=== PATIENT | female | born 2000 | race African-American/Black ===

== ENCOUNTER 2022-06-10 20:03 | Emergency (ER) | payer OTHER, SELFPAY ==
--- NOTE | ~2022-06-10 | XR_ITS ---
EXAM: XR ankle LT min 3V DATE: 06/10/2022 20:18 HISTORY: injury;fell during basketball yest; lat Lt ankle swelling . COMPARISON: None available. FINDINGS: Normal mineralization. No fracture or dislocation. No lytic or blastic lesion. Joint space s are maintained. No erosion or periosteal change. Soft tissues within normal limits. IMPRESSION: No acute osseous finding in the left ankle. Reviewed, dictated and finalized at location K.
[2022-06-10 20:06] VITALS: BP 129/54; PULSE 65; RESP 16; TEMP 36.4; O2SAT 97
--- NOTE | 2022-06-10 20:17 | ED.LOWEXIN ---
HPI - Extremity Injury (Lower) General Chief Complaint: Extremity Injury, Lower Stated Complaint: L ankle swelling, hx sprain Time Seen by Provider: 06/10/22 20:09 Source: patient Mode of arrival: ambulatory (On crutches) Limitations: no limitations History of Present Illness HPI Narrative: This is a 21-year-old female that presents to the emergency department for left ankle pain after an injury yesterday. Reports she rolled her ankle in practice yesterday. Reports pain and swelling in the lateral ankle. Denies decreased range of motion or numbness. Related Data Allergies Allergy/AdvReac Type Severity Reaction Status Date / Time No Known Allergies Allergy Unverified 06/22/17 19:45 Review of Systems Review of Systems: CONSTITUTIONAL: Denies fever MUSCULOSKELETAL: Reports joint pain, and myalgia. NEUROLOGIC: Denies numbness All systems reviewed & are unremarkable except as noted in HPI and below PMFSH Past Medical History Medical History (Updated 06/10/22 @ 20:46 by Janet Berumen PA-C) No active medical problems Social History Social History (Updated 06/10/22 @ 20:18 by Janet Berumen PA-C) Smoking status: Never smoker Exam Narrative: GENERAL: Well-appearing, well-nourished, and in no acute distress. HEAD: Normocephalic, atraumatic. EYES: EOMI. EXTREMITIES: Normal range of motion. Mild edema about the left lateral malleoli. Normal DP pulse. Normal sensation SKIN: Warm, dry, no rash. NEURO: No focal deficits. Alert and oriented x3. PSYCH: Normal mood and affect Course Vital Signs Vital signs: Vital Signs Temperature 97.6 F 06/10/22 20:06 Pulse Rate 65 06/10/22 20:06 Respiratory Rate 16 06/10/22 20:06 Blood Pressure 129/54 L 06/10/22 20:06 Pulse Oximetry 97 06/10/22 20:06 Temperature 97.6 F 06/10/22 20:06 Pulse Rate 65 06/10/22 20:06 Respiratory Rate 16 06/10/22 20:06 Blood Pressure 129/54 L 06/10/22 20:06 Pulse Oximetry 97 06/10/22 20:06 MDM - Extremity Injury (Lower) MDM Narrative Medical decision making narrative: Patient presents emergency department for left ankle pain after an injury yesterday. She is neurovascularly intact. Left ankle x-ray without acute osseous abnormalities. Patient instructed on continued care of ankle sprain. She is to follow-up with primary care provider. She was given warnings to return to the ER Imaging Data Radiologist's impression: ITS Impressions Ankle X-Ray 06/10/22 20:21 IMPRESSION: No acute osseous finding in the left ankle. Critical Care Time Critical Care Time Critical Care Time: No Discharge Plan Discharge Clinical Impression: Ankle sprain and strain Patient Disposition: Home, Self-Care Condition: Stable Instructions: Ankle Sprain (ED) Additional Instructions: Return to the emergency department if you experience fever, redness and swelling of your leg, numbness, or any other symptoms that are concerning to you Wear ROMAN wrap and use crutches. No weight on the affected leg until able to bear weight without pain. Ice and elevate extremity. Pain medication as needed and directed. Follow up with your doctor for further care. Follow-up/Referrals: PHYSICIAN,MASK INSPECTOR [Primary Care Provider] - Boni Quintana MD [Physician] - 1 Week
== END 2022-06-10 21:20 | disposition home or self-care (01) ==
PROVIDERS: Emergency Provider Emergency Medicine
DX: S93.402A Sprain of unspecified ligament of left ankle, initial encounter (principal); S96.912A Strain of unspecified muscle and tendon at ankle and foot level, left foot, initial encounter; X58.XXXA Exposure to other specified factors, initial encounter
CPT/HCPCS: 73610; 99283

== ENCOUNTER 2023-11-07 10:16 | Emergency (ER) | payer SELFPAY ==
[2023-11-07 10:25] VITALS: BP 125/58; PULSE 83; RESP 16; TEMP 37.1; O2SAT 99
--- NOTE | 2023-11-07 10:46 | ED.SKABFB ---
HPI - Skin/Abscess/Foreign Bdy General Chief complaint: Skin/Abscess/Foreign Body Stated complaint: Insect Bite Time Seen by Provider: 11/07/23 10:46 Source: patient Mode of arrival: ambulatory Limitations: no limitations History of Present Illness HPI narrative: 23-year-old female presents with insect bite to left upper arm, right side. Patient thinks that she was bit at home on her mother's couch. Complaining of itching and pain. Afebrile. All systems reviewed and negative except as noted above. Related Data Allergies Allergy/AdvReac Type Severity Reaction Status Date / Time No Known Allergies Allergy Verified 11/07/23 10:25 Review of Systems Review of Systems: CONSTITUTIONAL: Denies fever, chills, or sweats. EYES: Denies visual changes, redness, or discharge. ENT: Denies rhinorrhea, congestion, sore throat, or otalgia. CARDIOVASCULAR: Denies chest pain, palpitations, or edema. RESPIRATORY: Denies cough or dyspnea. GASTROINTESTINAL: Denies abdominal pain, nausea, vomiting, or diarrhea. GENITOURINARY: Denies dysuria or hematuria. SKIN: Reports redness, swelling and itching to left upper arm, right side Thorax. MUSCULOSKELETAL: Denies back pain, joint pain, or myalgia. NEUROLOGIC: Denies headache, numbness, or weakness. PSYCHIATRIC: Denies anxiety or depression. All other systems reviewed are negative, except as documented in HPI. [facility] Past Medical History Medical History (Updated 11/07/23 @ 10:53 by Deepa Anderson NP) No active medical problems Social History Social History (Updated 06/10/22 @ 20:18 by Janet Beurmen PA-C) Smoking status: Never smoker Comments At time of signature, agree with nursing past medical, surgical, social and family history. There is no relevant family history pertinent to the presenting complaint. Exam Narrative: GENERAL: This is a well-nourished, well-developed patient, in no apparent distress. HEAD: normocephalic, atraumatic. EYES: PERRL. Sclera clear/white. Vision is grossly intact. EARS: External ears normal NOSE: External nose normal NECK: Neck supple, non-tender without lymphadenopathy, masses or thyromegaly. CARDIOVASCULAR: Regular rate and rhythm without murmurs, gallops, or rubs. RESPIRATORY: Clear to auscultation. Breath sounds equal bilaterally. No wheezes, rales, or rhonchi. SKIN: warm, Dry, intact with no suspicious rash, good texture and turgor. erythema, swelling,warmth tenderness to L forearm and R side thorax. R thorax approx. 3cm diamater. L forearm approx. 5x6cm. NEURO: awake, alert, and oriented to person, place and time. There were no obvious focal neurologic abnormalities. EXTREMITIES: No joint tenderness, effusion, or edema noted. Course Course Level of Care: Express Care Visit Vital Signs Vital signs: Vital Signs Temperature 37.1 C 11/07/23 10:25 Pulse Rate 83 11/07/23 10:25 Respiratory Rate 16 11/07/23 10:25 Blood Pressure 125/58 L 11/07/23 10:25 Pulse Oximetry 99 11/07/23 10:25 Oxygen Delivery Room Air 11/07/23 10:25 Temperature 37.1 C 11/07/23 10:25 Pulse Rate 83 11/07/23 10:25 Respiratory Rate 16 11/07/23 10:25 Blood Pressure 125/58 L 11/07/23 10:25 Pulse Oximetry 99 11/07/23 10:25 Oxygen Delivery Room Air 11/07/23 10:25 reviewed MDM - Skin/Abscess/Foreign Bdy MDM Narrative Medical decision making narrative: Patient is aware of diagnosis, understands and agrees to treatment plan. Anticipatory guidance given. Patient agrees to follow-up as directed and is aware of reasons to seek care at the emergency department. Portions of this record may have been created with voice recognition software Differential Diagnosis Differential diagnosis: Likely insect bites Discharge Plan Discharge Clinical Impression: Insect bite of arm, left, infected, Insect bite of right front wall of thorax Patient Disposition: Home, Self-Care Condition: Stable Instructions
== END 2023-11-07 10:58 | disposition home or self-care (01) ==
PROVIDERS: Emergency Provider Nurse Practitioner Family
DX: S50.862A Insect bite (nonvenomous) of left forearm, initial encounter (principal); L08.9 Local infection of the skin and subcutaneous tissue, unspecified; S20.361A Insect bite (nonvenomous) of right front wall of thorax, initial encounter
CPT/HCPCS: 99213; G0463

== ENCOUNTER 2023-12-02 21:14 | Emergency (ER) | payer SELFPAY ==
--- NOTE | ~2023-12-02 | XR_ITS ---
EXAMINATION: XR chest 1V portable DATE: 12/02/2023 22:20 INDICATION: Chest and low back pain. TECHNIQUE: A single frontal view of the chest was obtained. COMPARISON: None. FINDINGS: There is no pneumonia, pleural effusion, or pneumothorax. The heart size is normal. IMPRESSION: 1. No acute cardiopulmonary disease. Reviewed, dictated and finalized at location E.
[2023-12-02 21:21] VITALS: BP 142/80; PULSE 117; RESP 13; TEMP 38.1; O2SAT 100
--- NOTE | 2023-12-02 21:27 | ECG_ITS ---
SEE SCANNED COPY FOR CONFIRMED REPORT MTDD
[2023-12-02 21:39] VITALS: BP 136/77; PULSE 88; RESP 15; O2SAT 100
[2023-12-02 22:01] VITALS: BP 136/76; PULSE 78; RESP 12; O2SAT 100
[2023-12-02 22:12] LABS: Influenza A QL RT-PCR Negative (Negative); Influenza B QL RT-PCR Negative (Negative); RSV RNA, RT-PCR Negative (Negative); SARS-CoV-2 RNA PCR Negative (Negative)
[2023-12-02] MEDS: ACETAMINOPHEN 500 MG TABLET 1000 MG PO (22:22)
[2023-12-02] MEDS: IBUPROFEN 400 MG TABLET 800 MG PO (22:22)
[2023-12-02 23:21] LABS: Appearance Urine Clear (Clear); Bacteria Urine Rare /hpf; Bilirubin Urine Negative (Negative); Blood Urine Trace (Negative); Color Urine Yellow (Yellow); Glucose Urine UA Negative (Negative); Ketones Urine 3+ mg/dL (Negative); Leukocyte Esterase Ur Negative LEU/UL (Negative); Nitrate Urine Negative (Negative); Non Pathogenic Casts 0-2; Protein Urine Trace mg/dL (Negative); RBC Urine 0-2 /hpf (0-2); Specific Grav Ur 1.026 (1.001-1.035); Squamous Epithelial Cell Urine Occasional /hpf (Few); WBC Urine 0-5 /hpf (0-3)
[2023-12-02 23:23] LABS: Add Urine Microscopic? YES
[2023-12-02 23:30] VITALS: BP 129/60; PULSE 75; RESP 21; O2SAT 100
--- NOTE | 2023-12-03 00:46 | ED.GENADULT ---
HPI - General Adult General Chief complaint: Unspecified Stated complaint: chest, lower back, and leg pain Time Seen by Provider: 12/02/23 22:15 History of Present Illness HPI narrative: Patient 23-year-old female who presents emergency department with chief complaint of low back pain chest discomfort and body aches. The patient states started about 4 days ago reports that she has had a subjective fever and reports that she has not checked her temperature. The patient states that she does need a work note for work Related Data Allergies Allergy/AdvReac Type Severity Reaction Status Date / Time No Known Allergies Allergy Verified 11/07/23 10:25 Review of Systems Review of Systems: A 10 system review of systems was completed on the patient and is negative except for what is stated in the HPI. Nursing and ancillary documentation was reviewed. PMFSH Past Medical History Medical History No active medical problems Social History Social History Smoking status: Never smoker Exam Narrative: GENERAL: Well-appearing, well-nourished, and in no acute distress. HEAD: Normocephalic, atraumatic. EYES: PERRLA and EOMI. ENT: Nares clear, no rhinorrhea or epistaxis. Mucous membranes moist. NECK: Supple. CHEST: Clear to auscultation. No respiratory distress. HEART: Regular rate and rhythm. No murmur heard. Normal peripheral pulses. ABDOMEN: Soft, nontender, nondistended, normal active bowel sounds. EXTREMITIES: Normal range of motion. No edema. SKIN: Warm, dry, no rash. NEURO: No focal deficits. Alert and oriented x3. PSYCH: Normal mood and affect. Course Vital Signs Vital signs: Vital Signs Temperature 38.1 C H 12/02/23 21:21 Pulse Rate 117 H 12/02/23 21:21 Respiratory Rate 13 12/02/23 21:21 Blood Pressure 142/80 H 12/02/23 21:21 Pulse Oximetry 100 12/02/23 21:21 Oxygen Delivery Room Air 12/02/23 21:21 Temperature 38.1 C H 12/02/23 21:21 Pulse Rate 75 12/02/23 23:30 Respiratory Rate 21 H 12/02/23 23:30 Blood Pressure 129/60 12/02/23 23:30 Pulse Oximetry 100 12/02/23 23:30 Oxygen Delivery Room Air 12/02/23 21:[address] [facility] Narrative Medical decision making narrative: Differential diagnosis includes viral illness, UTI, pneumonia EKG was obtained showed no acute ischemic change Chest x-ray showed no focal infiltrate COVID flu RSV were negative urinalysis showed no evidence UTI. Patient is feeling much better after receiving Tylenol and ibuprofen Vital Signs Vital Signs: Vital Signs Temperature 38.1 C H 12/02/23 21:21 Pulse Rate 117 H 12/02/23 21:21 Respiratory Rate 13 12/02/23 21:21 Blood Pressure 142/80 H 12/02/23 21:21 Pulse Oximetry 100 12/02/23 21:21 Oxygen Delivery Room Air 12/02/23 21:21 Temperature 38.1 C H 12/02/23 21:21 Pulse Rate 75 12/02/23 23:30 Respiratory Rate 21 H 12/02/23 23:30 Blood Pressure 129/60 12/02/23 23:30 Pulse Oximetry 100 12/02/23 23:30 Oxygen Delivery Room Air 12/02/23 21:21 Lab Data Labs: Lab Results 12/02/23 12/02/23 Range/Units 21:31 23:05 Urine Color Yellow (Yellow) Urine Appearance Clear (Clear) Urine pH 6.0 (5.0-9.0) Ur Specific [place] 1.026 (1.001-1.035) Urine Protein Trace (Negative) mg/dL Urine Glucose (UA) Negative (Negative) mg/dL Urine Ketones 3+ H (Negative) mg/dL Ur Blood (Man) Trace (Negative) Urine Nitrate Negative (Negative) Urine Bilirubin Negative (Negative) Urine Urobilinogen 1.0 (<2.0) mg/dL Leukocyte Esterase Rfl Negative (Negative) KATEY/UL Urine RBC 0-2 (0-2) /hpf Urine WBC 0-5 (0-3) /hpf Ur Squamous Epith Cells Occasional (Few) /hpf Urine Bacteria Rare /hpf Urine Casts 0-2 Influenza A (RT-PCR) Negative (Negative) Influ
[2023-12-03 01:04] VITALS: BP 113/62; PULSE 73; RESP 23; O2SAT 97
== END 2023-12-03 01:06 | disposition home or self-care (01) ==
PROVIDERS: Emergency Provider Emergency Medicine
DX: B34.9 Viral infection, unspecified (principal); Z20.822 Contact with and (suspected) exposure to COVID-19
CPT/HCPCS: 71045; 81001; 81025; 87637; 93005; 99283; A9270

== ENCOUNTER 2023-12-07 09:34 | Emergency (ER) | payer SELFPAY ==
[2023-12-07 09:52] VITALS: BP 117/71; PULSE 110; RESP 18; TEMP 37.7; O2SAT 97
[2023-12-07 09:58] VITALS: O2SAT 99
--- NOTE | 2023-12-07 10:13 | ED.URI ---
HPI - URI/Sore Throat General Chief Complaint: Upper Respiratory Infection Stated Complaint: COLD S/SX Time Seen by Provider: 12/07/23 09:44 Source: patient and family ( Mother) Mode of arrival: ambulatory Limitations: no limitations History of Present Illness HPI Narrative: patient presents with multiple complaints including the following: Achy, cough, cold, chills and hot flashes. She has not measured her temperature. She is also having a sore throat and some right-sided neck pain. Patient took 2 Tylenol today and 2 Motrin today prior to coming. She had been taking these medications over the past few days but only one or sometimes two doses. Related Data Allergies Allergy/AdvReac Type Severity Reaction Status Date / Time No Known Allergies Allergy Verified 12/07/23 09:55 [facility] Past Medical History Medical History No active medical problems Social History Social History Smoking status: Never smoker Exam Narrative: GENERAL: Well-appearing, well-nourished, and in no acute distress. HEAD: Normocephalic, atraumatic. EYES: Non injected, non icteric ENT: Nares clear, no rhinorrhea or epistaxis. posterior oropharynx mildly erythematous. Tonsillar hypertrophy without exudate. Uvula midline. NECK: Supple. no meningismus. Mild lymphadenopathy cervical and posterior, R > L. CHEST: Speaking in full sentences. No respiratory distress. HEART: Tachycardic rate and rhythm. . ABDOMEN: Soft, nondistended. EXTREMITIES: Normal range of motion. No edema. SKIN: Warm, dry, no rash. NEURO: No focal deficits. Alert and oriented x3. PSYCH: Normal mood and affect. Course Vital Signs Vital signs: Vital Signs Temperature 99.8 F H 12/07/23 09:52 Pulse Rate 110 H 12/07/23 09:52 Respiratory Rate 18 12/07/23 09:52 Blood Pressure 117/71 12/07/23 09:52 Pulse Oximetry 97 12/07/23 09:52 Temperature 98.0 F 12/07/23 12:08 Pulse Rate 77 12/07/23 13:20 Respiratory Rate 16 12/07/23 13:20 Blood Pressure 120/65 12/07/23 13:20 Pulse Oximetry 100 12/07/23 13:20 Oxygen Delivery Room Air 12/07/23 09:58 MDM - URI/Sore Throat MDM Narrative Medical decision making narrative: Patient presents with complaint of sore throat as well as alternating fever and chills and myalgias. Seen for some similar and some different symptoms within the past week. in the emergency department she is afebrile with vital signs notable for tachycardia. will give a 1 time dose of dexamethasone has been shown to improve time symptom resolution of sore throat. Strep, viral swab, and mono tests are all negative. Given that this is a 2nd encounter will obtain lab work. There are minor abnormalities as below. I did discuss with patient that I feel she would benefit from establishing with a primary care physician. We discussed that she can increase the frequency of her analgesic medication. Will give work note for few days. Patient is to return with any new or worsening symptoms. Vital signs have normalized. Discharged in stable condition. Patient and her mother verifies understanding and are in agreement. Differential Diagnosis Differential diagnosis: Likely upper respiratory infection, otitis media, viral infection, influenza, pharyngitis and other (malignancy) Medical Records Attestation: I reviewed the patient's medical records. Medical records narrative: patient was recently seen for low back pain, chest discomfort, and myalgias within the past week. Workup at that time was negative and patient was discharged home in stable condition. Lab Data Attestation: I reviewed the patient's lab results. Lab results narrative: Leukopenia, normocytic anemia with no prior for comparison Elevated AST Elevated CPK 12/07/23 10:50 12/07/23 10:50 Labs: Lab Results
[2023-12-07 10:33] LABS: Strep Group A RT-PCR NOT DETECTED (Negative)
[2023-12-07] MEDS: dexAMETHasone 2 MG TABLET 10 MG PO (10:44)
[2023-12-07 10:45] LABS: Influenza A QL RT-PCR Negative (Negative); Influenza B QL RT-PCR Negative (Negative); RSV RNA, RT-PCR Negative (Negative); SARS-CoV-2 RNA PCR Negative (Negative)
[2023-12-07 11:34] LABS: Monoscreen Negative (Negative); Negative Monotest Control Negative (Negative); Positive Monotest Control Positive (Positive)
[2023-12-07] MEDS: SODIUM CHLORIDE 0.9% IV 1,000 ML 999 ML IV CONT (12:05)
[2023-12-07 12:06] LABS: Basophils Percent Auto 0.6 % (0.2-1.2); Eosinophils Percent Auto 0.8 % (0-4.4); Hematocrit 32.2 % (37.0-47.0); Hemoglobin 10.3 g/dL (12.0-15.0); Immature Granulocyte Absolute 0.01 K/mm3 (0.00-0.031); Immature Granulocyte Percent A 0.3 % (0-0.5); Lymphocytes Absolute Auto 1.29 K/mm3 (0.9-3.2); Lymphocytes Percent Auto 36.5 % (18.3-44.2); Mean Corpuscular Hemoglobin 26.6 pg (26-34); Mean Corpuscular Volume 83.2 fl (80-100); Mean Platelet Volume 11.3 fl (7.4-10.4); Monocytes Absolute Auto 0.3 K/mm3 (0.1-0.6); Monocytes Percent Auto 9.1 % (2.6-8.5); Neutrophils Absolute Auto 1.9 K/mm3 (1.3-6.7); Neutrophils Percent Auto 52.7 % (45.5-73.1); Platelet Count Result 181 k/mm3 (150-375); Red Blood Count 3.87 M/mm3 (4.2-5.4); Red Cell Distribution Width 14.4 % (11.5-14.5); White Blood Count 3.5 K/mm3 (4.5-10.0)
[2023-12-07 12:08] VITALS: BP 113/67; PULSE 79; RESP 16; TEMP 36.7; O2SAT 100
[2023-12-07 12:13] LABS: Alanine Aminotransferase 27 U/L (6-35); Albumin Level 3.9 g/dL (3.5-5.1); Alkaline Phosphatase 67 U/L (38-126); Anion Gap 8 mmol/L (4-12); Aspartate Amino Transferase 76 U/L (14-36); Bilirubin,Total 0.8 mg/dL (0.2-1.3); Blood Urea Nitrogen 11 mg/dL (7-17); Calcium 8.8 mg/dL (8.4-10.2); Carbon Dioxide 26 mmol/L (22-30); Chloride 102 mmol/L (98-107); Creatine Kinase 238 U/L (30-135); Estimated CRCL calculation 74 ml/min; Estimated Glomerular Filt Rate > 60; Glucose 111 mg/dL (65-110); Magnesium 2.1 mg/dL (1.6-2.3); Potassium 3.5 mmol/L (3.4-5.0); Sodium 136 mmol/L (137-145)
[2023-12-07 12:18] LABS: Hypochromasia 1+; Platelet Estimate Adequate (Adequate); Schistocytes None Seen
[2023-12-07 13:20] VITALS: BP 120/65; PULSE 77; RESP 16; O2SAT 100
== END 2023-12-07 13:21 | disposition home or self-care (01) ==
PROVIDERS: Emergency Provider Student in an Organized Health Care Education/Training Program
DX: D72.819 Decreased white blood cell count, unspecified (principal); D64.9 Anemia, unspecified; R74.01 Elevation of levels of liver transaminase levels; R74.8 Abnormal levels of other serum enzymes; Z20.822 Contact with and (suspected) exposure to COVID-19
CPT/HCPCS: 36415; 80053; 82550; 83735; 85025; 86308; 87637; 87651; 96360; 99283; J7030; J8540

== ENCOUNTER 2024-02-18 12:54 | Emergency (ER) | payer SELFPAY ==
[2024-02-18 13:11] VITALS: BP 106/59; PULSE 100; RESP 18; TEMP 38.4; O2SAT 100
--- NOTE | 2024-02-18 13:45 | ED.URI ---
HPI - URI/Sore Throat General Chief Complaint: Upper Respiratory Infection Stated Complaint: lihtheaded,loss of appetite, massive PERKINS,weakness Time Seen by Provider: 02/18/24 13:45 Source: patient Mode of arrival: ambulatory Limitations: no limitations History of Present Illness HPI Narrative: 23-year-old female presents with complaint of nasal congestion, sinus pressure, headache, sore throat, fatigue, body aches, chills, nausea and decreased appetite for 2-3 days. Symptoms getting progressively worse. Was not aware she had fever until arrival to [facility]. States she took Tylenol yesterday on a empty stomach and it made her feel sick. Not taking any [id number] medications to treat sinus symptoms. All systems reviewed and negative except as noted above. Related Data Allergies Allergy/AdvReac Type Severity Reaction Status Date / Time No Known Allergies Allergy Verified 02/18/24 13:19 Review of Systems Review of Systems: CONSTITUTIONAL: reports fever, chills, or sweats. EYES: Denies visual changes, redness, or discharge. ENT: Reports rhinorrhea, congestion, sore throat. Denies otalgia. CARDIOVASCULAR: Denies chest pain, palpitations, or edema. RESPIRATORY: Denies cough or dyspnea. GASTROINTESTINAL: Denies abdominal pain, nausea, vomiting, or diarrhea. GENITOURINARY: Denies dysuria or hematuria. SKIN: Denies rash or itching. MUSCULOSKELETAL: Denies back pain, joint pain, or myalgia. NEUROLOGIC: reports headache. Denies numbness, or weakness. PSYCHIATRIC: Denies anxiety or depression. All other systems reviewed are negative, except as documented in HPI. PMFSH Past Medical History Medical History No active medical problems Social History Social History Smoking status: Never smoker Comments At time of signature, agree with nursing past medical, surgical, social and family history. There is no relevant family history pertinent to the presenting complaint. Exam Narrative: GENERAL: This is a well-nourished, well-developed patient, in no apparent distress. HEAD: normocephalic, atraumatic. EYES: PERRL. Sclera clear/white. Vision is grossly intact. EARS: External ears normal, auditory canals clear and without drainage, TMs normal without perforation. Hearing grossly intact. NOSE: External nose normal with congestion, erythema and swelling to bilateral nares THROAT: Mucous membranes moist, erythema with postnasal drainage. No swelling or exudates NECK: Neck supple, non-tender without lymphadenopathy, masses or thyromegaly. CARDIOVASCULAR: Regular rate and rhythm without murmurs, gallops, or rubs. RESPIRATORY: Clear to auscultation. Breath sounds equal bilaterally. No wheezes, rales, or rhonchi. SKIN: warm, Dry, intact with no suspicious lesions or rash, good texture and turgor. NEURO: awake, alert, and oriented to person, place and time. There were no obvious focal neurologic abnormalities. EXTREMITIES: No joint tenderness, effusion, or edema noted. Course Course Level of Care: Express Care Visit Vital Signs Vital signs: Vital Signs Temperature 38.4 C H 02/18/24 13:11 Pulse Rate 100 02/18/24 13:11 Respiratory Rate 18 02/18/24 13:11 Blood Pressure 106/59 L 02/18/24 13:11 Pulse Oximetry 100 02/18/24 13:11 Oxygen Delivery Room Air 02/18/24 13:11 Temperature 38.4 C H 02/18/24 13:11 Pulse Rate 100 02/18/24 13:11 Respiratory Rate 18 02/18/24 13:11 Blood Pressure 106/59 L 02/18/24 13:11 Pulse Oximetry 100 02/18/24 13:11 Oxygen Delivery Room Air 02/18/24 13:11 reviewed MDM - URI/Sore Throat MDM Narrative Medical decision making narrative: negative COVID, influenza and strep test. Patient well-appearing, nontoxic. Will treat for viral sinusitis symptoms Patient is aware of diagnosis, understands and agrees to treatme
[2024-02-18 13:46] LABS: EDINFLUASCREEN Negative; EDINFLUBSCREEN Negative
[2024-02-18] MEDS: IBUPROFEN 600 MG TABLET PO (13:57)
== END 2024-02-18 13:59 | disposition home or self-care (01) ==
PROVIDERS: Emergency Provider Nurse Practitioner Family
DX: J01.90 Acute sinusitis, unspecified (principal); Z20.822 Contact with and (suspected) exposure to COVID-19
CPT/HCPCS: 87081; 87426; 87804; 87880; 99213; A9270; G0463

== ENCOUNTER 2024-07-20 17:14 | Emergency (ER) | payer SELFPAY ==
--- NOTE | 2024-07-20 17:15 | ED_ITS ---
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 Denies any chance of . States it is a normal flow, normal time. Denies any other symptoms. Did take 1 dose of Tylenol Related Data Allergies Allergy/AdvReac Type Severity Reaction Status Date / Time No Known Allergies Allergy Verified 07/20/24 17:19 Review of Systems Review of Systems: All systems reviewed & are unremarkable except as noted in HPI and below Constitutional: Constitutional: Reports no additional constitutional complaints ENT: Reports system reviewed and no additional complaints, except as documented Cardiovascular: Cardiovascular: Reports no additional cardiovascular complaints, Denies chest pain and Denies dyspnea Respiratory: Respiratory: Reports no additional respiratory complaints, Denies chest congestion, Denies cough and Denies dyspnea Gastrointestinal: Gastrointestinal: Reports as per HPI, Reports abdominal pain (Cramping suprapubic), Denies nausea and Denies vomiting Musculoskeletal: Musculoskeletal: Reports no additional musculoskeletal complaints Integumentary/Breasts: Skin/Breast: Reports system reviewed and no additional complaints, except as docu PMFSH Past Medical History Medical History No active medical problems Social History Social History Smoking status: Never smoker Comments At the time of my signature, I reviewed and agree with the nursing past medical, surgical, social, and family history. There is no relevant family history pertinent to the patient complaint. Exam Const: General: cooperative, healthy appearing, comfortable, no acute distress, well developed, alert and well nourished Nutritional Appearance: well nourished Orientation/consciousness: patient oriented x3 Limitations: no limitations HENMT: Head: normal to inspection Ears: hearing grossly normal bilaterally and external ears normal Face/Nose/Sinus: Normal external nose present, normal facial exam and face symmetric Face and sinus: normal facial exam and face symmetric Eyes: General: appearance normal, both eyes and all related structures Alignment and Position: alignment normal Periorbital: periorbital findings normal Neck: Neck: normal visual inspection, full ROM, no lymphadenopathy and no meningeal signs Chest: Chest palpation & inspection: normal inspection of the chest Resp: Effort & Inspection: normal respiratory effort and able to speak in complete sentences Cardio: Rate: regular rate Skin: General skin exam: normal color and no rashes or lesions noted Lesions: no lesions Rashes: no rashes Wounds: no wounds Neuro: General: patient oriented x3, gait normal, tone normal, moves all extremities and no meningeal signs Cognition (Neuro): normal cognition Speech: normal speech Gait exam (Neuro): Normal gait present Extrem: General: normal to inspection, full ROM, capillary refill normal and normal gait Psych: Appearance: grossly normal and well kempt Mental Status: mental status grossly normal Speech and movement: Normal speech and movement present and Clear speech present Affect: normal affect Attitude: cooperative Course Course Level of Care: Express Care Visit Vital Signs Vital signs: Vital Signs Temperature 97.6 F 07/20/24 17:21 Pulse Rate 63 07/20/24 17:21 Respiratory Rate 19 07/20/24 17:21 Blood Pressure 142/64 H 07/20/24 17:21 Pulse Oximetry 100 07/20/24 17:21 Oxygen Delivery Room Air 07/20/24 17:21 Temperature 97.6 F 07/20/24 17:21 Pulse Rate 63 07/20/24 17:21 Respiratory Rate 19 07/20/24 17:21 Blood Pressure 142/64 H 07/20/24 17:21 Pulse Oximetry 100 07/20/24 17:21 Oxygen Delivery Room Air 07/20/24 17:21 Reviewed MDM - Female Genitourinary MDM Narrative Medical decision making narrative: Patient sitting comfortably in exam room. Nontoxic, vitals stable. Patient in no acute distress Patient presents with menstrual cramps, requesting a work note. Patient appropriate for outpatient treatment and follow-up Discharge instructions reviewed with patient, as well as provided in writing per nursing staff. The instructions also include specific and strict return/GO TO THE ER as well as f/u information. All questions have been answered, and the patient deny any further questions with discharge and discharge plan. Some parts of this dictation were generated by voice recognition software and may contain typographical and/or grammatical inaccuracies. Differential Diagnosis Differential diagnosis: Likely other Critical Care Time Critical Care Time Critical Care Time: No Discharge Plan Discharge Clinical Impression: Menstrual cramps Patient Disposition: Home, Self-Care Condition: Stable Instructions: Dysmenorrhea (ED) Additional Instructions: Stay hydrated with plenty of water. Take naproxen as prescribed Follow-up with a fire dispatcher provider for further testing and treatment Go to the ER for new or worsening symptoms Patient Language: Maltese Prescriptions: New naproxen 500 mg tablet 500 mg PO BID Qty: 20 0RF Follow-up/Referrals: Preet Golden MD [Physician] - 1 Week (express care follow up ) UNKNOWN,DOCTOR [Non-Staff] - Stand Alone Forms: Work/School Release IP Time of Disposition: 17:40
[2024-07-20 17:21] VITALS: BP 142/64; PULSE 63; RESP 19; TEMP 36.4; O2SAT 100
== END 2024-07-20 17:45 | disposition home or self-care (01) ==
PROVIDERS: Emergency Provider Nurse Practitioner
DX: N94.6 Dysmenorrhea, unspecified (principal)
CPT/HCPCS: 99213; G0463

== ENCOUNTER 2024-08-10 11:55 | Emergency (ER) | payer SELFPAY ==
--- NOTE | 2024-08-10 12:01 | ED.GENADULT ---
HPI - General Adult General Chief complaint: Unspecified Stated complaint: work note for fear of heights History of Present Illness HPI narrative: This is a 23-year-old female presenting ED requesting a work note saying that she is unable to operate at heights. 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 She says that she freezes up. She has no other complaints at this time. Related Data Allergies Allergy/AdvReac Type Severity Reaction Status Date / Time No Known Allergies Allergy Verified 07/20/24 17:19 [facility] Past Medical History Medical History No active medical problems Social History Social History Smoking status: Never smoker Exam Narrative: APPEARANCE: No apparent distress. Head: atraumatic. EYES: EOMI, NOSE: Atraumatic NECK: Trachea midline RESPIRATORY: No increased rate of breathing CARDIOVASCULAR: RRR, ABDOMINAL: Non-distended MUSCULOSKELETAl: No obvious deformities NEURO: Alert. Moving 4/4 extremities SKIN:: Warm, dry. Normal color PSYCHIATRIC: Normal affect Medical Decision Making MDM Narrative Medical decision making narrative: -Course: 23-year-old female requesting a work note saying she is not able to work at heights. This is not something provided by the emergency room. She will be given referral to a primary care physician for further management. Discharge Plan Discharge Clinical Impression: Fear of heights Patient Disposition: Home, Self-Care Condition: Stable Instructions: Antibiotic Form Additional Instructions: Please follow-up with your primary care physician to obtain a note for work. Patient Language: Romanian Prescriptions: No Action naproxen 500 mg tablet 500 mg PO BID Qty: 20 0RF Follow-up/Referrals: PHYSICIAN,AWS DEVELOPER [Primary Care Provider] - Boni Quintana MD [Physician] -
[2024-08-10 12:06] VITALS: BP 146/80; PULSE 69; RESP 16; TEMP 37; O2SAT 100
--- OUTSIDE RECORDS SUMMARY | 2024-08-17 11:49 | XMS_ITS | Encounter Summary ---
Author Organization [facility] Address [address] [place] [address]. [place], [place] [id number] [place] [id number] Care Team Providers Care Supervisor Pipe Manufacture Name Role Phone None, Provider Primary Care Provider Sabi llanes Encounter Details Date Type Department Care Team (Latest Contact Info) Description 03/19/2023 Travel Social History Tobacco Use Types Packs/Day Years Used Date Smoking Tobacco: Never Smokeless Tobacco: Never Alcohol Use Standard Drinks/Week Comments Never 0 (1 standard drink = 0.6 oz pur e alcohol) Comments No Sex and Gender Information Value Date Recorded Sex Assigned at Not on file Legal Sex Female 11:21 AM CDT Gender Identity Not on file Sexual Orientation Not on file documented as of this encounter Plan of Treatment Not on file documented as of this encounter Visit Diagnoses Not on filedocumented in this encounter Care Teams Supervisor Pipe Manufacture Relationship Specialty Start Date End Date None, Provider, PCP - General UNKNOWN PHYSICIAN SPECIALTY 05/24/22 documented as of this encounter
--- OUTSIDE RECORDS SUMMARY | 2024-08-17 11:49 | XMS_ITS | Clinical Summary ---
Author Organization [facility] Address [address] [place] [address]. [place], [place] [id number] [place] [address] Care Team Providers Care Mandrel Maker Name Role Phone None, Provider MD Primary Care Provider Unavaila ble Allergies No known active allergies Medications No known medications Active Problems Problem Noted Date Diagnosed Date Sports physical 05/24/2022 Social History Tobacco Use Types Packs/Day Years Used Date Smoking Tobacco: Never Smokeless Tobacco: Never Tobacco Cessation:Counseling Given: Not Answered Alcohol Use Standard Drinks/Week Comments Never 0 (1 standard drink = 0.6 oz pur e alcohol) Comments No Sex and Gender Information Value Date Recorded Sex Assigned at Not on file Legal Sex Female 11:21 AM CDT Gender Identity Not on file Sexual Orientation Not on file Last Filed Vital Signs Vital Sign Reading Time Taken Comments Blood Pressure 110/69 03/19/2023 3:13 PM CDT Pulse 75 03/19/2023 3:13 PM CDT Temperature 36.8 ??C (98.3 ??F) 03/19/2023 3:13 PM CD T Respiratory Rate 18 03/19/2023 3:13 PM CDT Oxygen Saturation 100% 03/19/2023 3:13 PM CDT Inhaled Oxygen Concentration - - Weight 64.9 kg (143 lb 1.3 oz) 03/19/2023 3:13 P M CDT Height 166.4 cm (5' 5.5 ) 03/19/2023 3:13 PM CDT Body Mass Index 23.45 03/19/2023 3:13 PM CDT Plan of Treatment Health Maintenance Due Date Last Done Comments Cervical Cancer Screening Pap Smear (Age 21 to 29) Every 3 Years 2002 Cervical Cancer Screening 2002 Annual Physical 2005 Hepatitis C 2020 COVID-19 Vaccine ( season) 2024 03/09/2021, 02/16/2021 DTaP, Tdap and Td Vaccines (7 - Td or Tdap) 05/13/2024 05/13/2014, 06/11/2007, 02/25/2004, Additional history exists Influenza Adult (#1) 2024 06/26/2020, 05/30/2018, 05/18/2016, Additional history exists Hepatitis B Vaccines Completed 06/22/2003, 2002, 2002 Pneumococcal Vaccine: Pediatrics (0 to 5 Years) and At-Risk Patients (6 to 64 Years) Aged Out 04/09/2006, 03/11/2003, 2002, Additional history exists No longer eligible based on patient's age to complete this topic HPV Vaccines Completed 10/15/2015, 12/2014, 05/13/2014 Meningococcal Vaccine Completed 06/16/2019, 014 RSV Immunizations Under 20 Months Aged Out No longer eligible based on patient's age to complete this topic Care Teams Mandrel Maker Relationship Specialty Start Date End Date None, Provider, MD PCP - General UNKNOWN PHYSICIAN SPECIALTY 05/24/22
--- OUTSIDE RECORDS SUMMARY | 2024-08-17 11:49 | XMS_ITS | Encounter Summary ---
Author Organization [facility] Address [address] [place] [address]. [place], [place] [id number] [place] [address] Care Team Providers Care Women'S Studies Professor Name Role Phone None, Provider MD Primary Care Provider Unavaila ble Reason for Visit * Reason Comments Insect Bite Encounter Details Date Type Department Care Team (Late st Contact Info) Description 03/19/2023 3:18 PM CDT - 03/19/2023 3:35 PM CDT Emergency [facility] [place] [address] Katheryn Geronimo, GEOGRAPHIC INFORMATION SYSTEM SURVEYOR- Insect Bite Discharge Disposition: Home or Self Care (Routine Discharge) Social History Tobacco Use Types Packs/Day Years [...] on file documented as of this encounter Last Filed Vital Signs Vital Sign Reading [...] Mass Index 23.45 03/19/2023 3:13 PM CDT documented in this encounter Discharge Instructions * Discharge Instructions* SHIRIN Bhardwaj - 03/19/2023 3:19 PM CDT It can be very difficult to determine the cause of an allergic reaction. Your allergies can waste/materials exchange specialist time, so even a medication or food that was not a problem before cantrigger a new allergy Continue Benadryl- This blocks histamine Please use caution with this medication as it can cause drowsiness. Do NOT drink alcohol, drive, oroperate machinery while taking it. Follow up with PCP in 7-10 days Return to ER for shortness of breath, worsening hives, or problems * Attachments The following attachments cannot be sent through Care Everywhere. * Hives Discharge Instructions (Georgian) documented in this encounter Medications at Time of Discharge diphenhydrAMINE (BENADRYL) 25 MG tablet Take 1-2 tablets (25-50 mg total) by mouth every 6 (six) hours as needed for Itching. 30 tablet 03/19/2023 04/18/2023 documented as of this encounter ED Notes * SHIRIN Bhardwaj - 03/19/2023 3:14 PM CDT History Chief Complaint Patient presents with Insect Bite Flori Govea is a 22-year-old female who presented to the ED with c/o a bug bite to her chin and right wrist that happened last night. Pt thought it might be a spider but did not see anything bite her. Pt denies shortness of breath. Pt denies difficulty swallowing. Pt denies fever. History reviewed. No pertinent past medical history. Prior to Admission medications Medication Sig Start Date End Date Taking? Authorizing Provider diphenhydrAMINE (BENADRYL) 25 MG tablet Take 1-2 tablets (25-50 mg total) by mouth every 6 (six) hours as needed for Itching. 03/19/23 04/18/23 Yes Katheryn Borrero Juanpablo, GEOGRAPHIC INFORMATION SYSTEM SURVEYOR- History reviewed. No pertinent surgical history. No family history on file. Social History Tobacco Use Smoking status: Never Smokeless tobacco: Never Substance Use Topics Alcohol use: Never Drug use: Never Patient's last menstrual period was 03/17/2023. Review of Systems Constitutional: Negative for fever. HENT: Negative for trouble swallowing. Respiratory: Negative for shortness of breath. Skin: Positive for color change and wound. All other systems reviewed and are negative. Physical Exam Filed Vitals: 03/19/23 1513 BP: 110/69 Pulse: 75 Resp: 18 Temp: 98.3 ??F (36.8 ??C) TempSrc: Temporal SpO2: 100% Weight: 64.9 kg (143 lb 1.3 oz) Height: 5' 5.5 (1.664 m) Physical Exam Vitals reviewed. Constitutional: Appearance: Normal appearance. She is well-developed. HENT: Head: Normocephalic and atraumatic. Right Ear: External ear normal. Left Ear: External ear normal. Nose: Nose normal. Mouth/Throat: Mouth: Mucous membranes are moist. Eyes: Conjunctiva/sclera: Conjunctivae normal. Pupils: Pupils are equal, round, and reactive to light. Cardiovascular: Rate and Rhythm: Normal rate and regular rhythm. Heart sounds: Normal heart sounds. Pulmonary: Effort: Pulmonary effort is normal. Breath sounds: Normal breath sounds. Abdominal: General: Bowel sounds are normal. Palpations: Abdomen is soft. Musculoskeletal: General: Normal range of motion. Cervical back: Normal range of motion and neck supple. Skin: General: Skin is warm and dry. Capillary Refill: Capillary refill takes less than 2 seconds. Comments: Right anterior forearm with 2 inch raised, erythematous annular hive noted, consitent with urticaria. Right lower chin with 1.5cm area of raised, erythematous annular lesion with central pin point scab. No drainage. Areas are pruritic in nature. Non tender, no fluctuance. Neurological: Mental Status: She is alert and oriented to person, place, and time. Psychiatric: Behavior: Behavior normal. Thought Content: Thought content normal. ED Course Procedures Medications dexamethasone PF (DECADRON) injection 5 mg (has no administration in time range) diphenhydrAMINE (BENADRYL) capsule 50 mg (has no administration in time range) Current Discharge Medication List START taking these medications Details diphenhydrAMINE (BENADRYL) 25 MG tablet Take 1-2 tablets (25-50 mg total) by mouth every 6 (six) hours as needed for Itching. Qty: 30 tablet, Refills: 0 Class: Eprescribe Pharmacy: [facility] #[id number] AT [facility] [address] (Ph #: [phone]) Medical Decision Making Pt with inflammatory response from suspected insect bite to right forearm and right lower chin. Will treat symptomatically with dexamethasone and benadryl. Pt has a ride home and was advised not to drive after taking benadryl due to drowsiness. Risk OTC drugs. Prescription drug management. Plan of care discussed with patient. Patient agreeable with plan of care. I have discussed today's findings with the patient and provided information regarding the likely diagnosis. I believe at thistime that the patient has no medical emergency and is appropriate for outpatient management. The patient has been given information regarding their treatment, follow up and concerning symptoms for which they should seek urgent or emergent attention; all questions were answered. I have expressed thethe importance of seeking attention should there be any new, or worsening symptoms or persistence of their condition. The patient is stable at discharge and has verbalized understanding of these instructions. SNOMED CT(R) 1. Insect bite INSECT BITE - WOUND 2. Urticaria URTICARIA Disposition: Discharge Follow up instructions: Your PCP Call in 2 days If symptoms worsen SHIRIN BHARDWAJ Please excuse any grammatical or spelling errors as this chart was documented using [employer], a dictation software. SHIRIN Bhardwaj 03/19/23 1519 Cosigned by Taylor Amin MD at 03/20/2023 3:24 PM CDT * Cat Pride RN - 03/19/2023 3:11 PM CDT Pt reports bug bite to R lower forearm and chin sometime last night. Denies SOB. Reports pain and minor itching. Has not taken anything for pain. documented in this encounter Plan of Treatment Not on file documented as of this encounter Visit Diagnoses Diagnosis Insect bite- Primary Other, multiple, and unspecified sites, insect bite, nonvenomous, without mention of infection Urticaria Urticaria, unspecified documented in this encounter Administered Medications Inactive Administered Medications - up to 3 most recent administrations Medication Order MAR Action Action Date Dose Rate Site dexamethasone PF (DECADRON) injection 5 mg 5 mg, Intramuscular, Once, 1 dose, On Sun03/19/23 at 1515, Administer slowly over 1-4 minutes. Given 03/19/2023 3:26 PM CDT 5 mg Left Deltoid diphenhydrAMINE (BENADRYL) capsule 50 mg 50 mg, Oral, Once, 1 dose, On Sun03/19/23 at 1515 Given 03/19/2023 3:26 PM CDT 50 mg documented in this encounter Active and Recently Administered Medications Times are shown in CDT. Scheduled Medication Order 03/17/2023 03/18/2023 03/19/2023 dexamethasone PF (DECADRON) injection 5 mg (COMPLETED) 5 mg, Intramuscular, Once, 1 dose, On Sun03/19/23 at 1515, Administer slowly over 1-4 minutes. 1526 (Given - Provid er: Marie Valles RN) diphenhydrAMINE (BENADRYL) capsule 50 mg (COMPLETED) 50 mg, Oral, Once, 1 dose, On Sun03/19/23 at 1515 1526 (Given - Provid er: Marie Valles RN) documented in this encounter Care Teams Women'S Studies Professor Relationship Specialty Start Date End Date None, Provider, PCP - General UNKNOWN PHYSICIAN SPECIALTY 05/24/22 documented as of this encounter
--- OUTSIDE RECORDS SUMMARY | 2024-08-17 11:50 | XMS_ITS | Encounter Summary ---
Author Organization [facility] Address [address] [place] [address]. [place], [place] [id number] [place] [address] Care Team Providers Care Wood Veneer Taper Name Role Phone None, Provider Primary Care Provider Sabi llanes Encounter Details Date Type Department Care Team (Latest Contact Info) Description 05/24/2022 Travel Social History Tobacco Use Types Packs/Day Years Used Date Smoking Tobacco: Never Smokeless Tobacco: Never Comments Unknown Sex and Gender Information Value Date Recorded Sex Assigned at Not on file Legal Sex Female 11:21 AM CDT Gender Identity Not on file Sexual Orientation Not on file COVID-19 Exposure Response Date Recorded In the last 10 days, have yo u been in contact with someone who was confirmed or suspected to have Coronavirus/COVID-19? No / Unsure 05/24/2022 11:26 AM CDT documented as of this encounter Plan of Treatment Not on file documented as of this encounter Visit Diagnoses Not on filedocumented in this encounter Care Teams Wood Veneer Taper Relationship Specialty Start Date End Date None, Provider, PCP - General UNKNOWN PHYSICIAN SPECIALTY 05/24/22 documented as of this encounter
--- OUTSIDE RECORDS SUMMARY | 2024-08-17 11:50 | XMS_ITS | Clinical Summary ---
Author Organization [facility] Care Team Providers Care Seed Tester Name Role Phone Unavailable Primary Care Provider Unavailabl e Social History Tobacco Use Types Packs/Day Years Used Date Smoking Tobacco: Never Assessed Comments Unknown Sex and Gender Information Value Date Recorded Sex Assigned at Not on file Legal Sex Female 9:13 PM CDT Gender Identity Not on file Sexual Orientation Not on file Plan of Treatment Health Maintenance Due Date Last Done Comments Hepatitis C Virus (HCV) Screening 2002 SARS-COV-2 Immunization ( season) 2023 03/09/2021, 02/16/2021 Pap Smear 2023 Influenza Immunization (Season Ended) 2024 06/26/2020, 05/30/2018, 05/18/2016, Additional history exists Hepatitis B Immunization Completed 003, 2002, 2002 Hepatitis A Immunization Discontinued 04/09/2006, 08/14 Pneumococcal Immunization Combined Aged Out 04/09/2006, 03/11/2003, 2002, Additional history exists No longer eligible based on patient's age to complete this topic Measles Mumps Rubella (MMR) Immunization Discontinued 06/11/2007, 11/30/2003 Varicella Immunization Discontinued 06/11/2007, 2003 Polio (IPV) Immunization Discontinued 008, 02/25/2004, 2002, Additional history exists DTaP/Tdap/Td Immunization Discontinued 2013, 06/11/2007, 02/25/2004, Additional history exists TdaP Immunization Completed 05/13/2014 Human Papillomavirus (HPV) Immunization Completed 10/15/2015, 05/17/2015, 05/13/2014 Meningococcal Immunization (ACWY) Completed 06/16/2019, 05/13/2014 Rotavirus Immunization Aged Out No lo nger eligible based on patient's age to complete this topic
--- OUTSIDE RECORDS SUMMARY | 2024-08-17 11:50 | XMS_ITS | Encounter Summary ---
Author Organization [facility] Address [address] [place] [address] Care Team Providers Care Picker Tender Helper Name Role Phone Unavailable Primary Care Provider Unavailabl e Encounter Details Date Type Department Care Team (Late st Contact Info) Description 11/18/2020 1:15 PM CDT Rapid Evaluation [facility] [place] [address] Social History Tobacco Use Types Packs/Day Years [...]
--- OUTSIDE RECORDS SUMMARY | 2024-08-17 11:50 | XMS_ITS | Encounter Summary ---
Author Organization [facility] Address [address] [place] [address]. [place], [place] [id number] [place] [address] Care Team Providers Care Sexual Assault Nurse Name Role Phone None, Provider MD Primary Care Provider Unavaila ble Reason for Visit * Reason Comments Physical basketball Encounter Details Date Type Department Care Team (Late st Contact Info) Description 05/24/2022 11:30 AM CDT Office Visit [facility] Medical [place] [phone] Rafaela Francisco, ANP-BC Physical (basketball) Social History Tobacco Use Types Packs/Day Years [...] AM CDT documented as of this encounter Last Filed Vital Signs Vital Sign Reading Time Taken Comments Blood Pressure 116/72 05/24/2022 11:42 AM CDT Pulse 68 05/24/2022 11:42 AM CDT Temperature 36.8 ??C (98.2 ??F) 05/24/2022 11:42 AM C DT Respiratory Rate 16 05/24/2022 11:42 AM CDT Oxygen Saturation 98% 05/24/2022 11:42 AM CDT Inhaled Oxygen Concentration - - Weight 65 kg (143 lb 6.4 oz) 05/24/2022 11:42 AM CDT Height 166.4 cm (5' 5.5 ) 05/24/2022 11:42 AM CD T Body Mass Index 23.5 05/24/2022 11:42 AM CDT documented in this encounter Patient Instructions * Patient Instructions* KRISTIN Prince - 05/24/2022 11:30 AM CDT 1. Sports physical Cleared for sports. Form given to student. documented in this encounter Progress Notes * KRISTIN Prince - 05/24/2022 11:30 AM CDT Physical (basketball) Flori Govea is a 21-year-old female here for a sports physical. Date = 05/24/2022. School or organization = [employer]. Sports = basketball History of concussion no. Admits to childhood asthma, but has not used an inhaler for years. She denies any prior fracture, or family history of sudden cardiac . Examination: Filed Vitals: 05/24/22 1142 BP: 116/72 Pulse: 68 Resp: 16 Temp: 98.2 ??F (36.8 ??C) TempSrc: Temporal SpO2: 98% Weight: 65 kg (143 lb 6.4 oz) Height: 5' 5.5 (1.664 m) Body mass index is 23.5 kg/m??. VISION: Right eye 20/20 Left eye 20/20 She wears contacts. See scanned sports physical form for P.E. Under media Impression/Plan: 1. Sports physical [id number] Clearance: A. Cleared? yes Physical form given. KRISTIN PRINCE Cosigned by Chadwick Bueno MD at 05/25/2022 7:49 AM CDT documented in this encounter Plan of Treatment Not on file documented as of this encounter Visit Diagnoses Diagnosis Sports physical- Primary Other general medical examination for administrative purposes documented in this encounter Care Teams Sexual Assault Nurse Relationship Specialty Start Date End Date None, Provider, MD PCP - General UNKNOWN PHYSICIAN SPECIALTY 05/24/22 documented as of this encounter
--- OUTSIDE RECORDS SUMMARY | 2024-08-17 11:50 | XMS_ITS | Encounter Summary ---
Author Organization [facility] Address [address] [place] [address]. [place], [place] [address] [place] [address] Care Team Providers Care Professor Of Medicine Name Role Phone None, Provider Primary Care Provider Sabi llanes Encounter Details Date Type Department Care Team (Latest Contact Info) Description 05/24/2022 Scan HEALTH INFO [facility] Scanned, Documents Social History Tobacco Use Types Packs/Day Years [...] on filedocumented in this encounter Care Teams Professor Of Medicine Relationship Specialty Start Date End Date None, Provider, PCP - General UNKNOWN PHYSICIAN SPECIALTY 05/24/22 documented as of this encounter
--- OUTSIDE RECORDS SUMMARY | 2024-08-17 11:50 | XMS_ITS | Encounter Summary ---
Author Organization [facility] Address [address] [place] [address] Care Team Providers Care Technical Writer Name Role Phone Unavailable Primary Care Provider Unavailabl e Encounter Details Date Type Department Care Team (Late st Contact Info) Description 11/18/2020 Lab Requisition [facility] [employer] Mobile Testing [place], [place] [address] Wilfredo Bianchi MD [address] [place] [address] [place] [address] Social History Tobacco Use Types Packs/Day Years Used Date Smoking Tobacco: Never Assessed Comments Unknown Sex and Gender Information Value Date Recorded Sex Assigned at Not on file Legal Sex Female 9:13 PM CDT Gender Identity Not on file Sexual Orientation Not on file documented as of this encounter Plan of Treatment Not on file documented as of this encounter Procedures Procedure Name Priority Date/Time Associated Diagnosis Comments SARS-COV-2 PCR [facility] ONLY Routine 11/18/2020 1:05 PM CDT documented in this encounter Visit Diagnoses Not on filedocumented in this encounter
--- OUTSIDE RECORDS SUMMARY | 2024-08-17 12:26 | XMS_ITS | Clinical Summary ---
Author Organization [facility] Care Team Providers Care Knit Goods Mender Name Role Phone Unavailable Primary Care Provider [...]
--- OUTSIDE RECORDS SUMMARY | 2024-08-17 12:26 | XMS_ITS | Encounter Summary ---
Author Organization [facility] Address [address] [place] [address]. [place], [place] [address] [place] [address] Care Team Providers Care Gang Saw Operator Name Role Phone None, Provider Primary Care [...] on filedocumented in this encounter Care Teams Gang Saw Operator Relationship Specialty Start Date End Date None, Provider, PCP - General UNKNOWN PHYSICIAN SPECIALTY 05/24/22 documented as of this encounter
--- OUTSIDE RECORDS SUMMARY | 2024-08-17 12:26 | XMS_ITS | Encounter Summary ---
Author Organization [facility] Address [address] [place] [address]. [place], [place] [address] [place] [address] Care Team Providers Care Insulation Nozzleman Name Role Phone None, Provider Primary Care [...] on filedocumented in this encounter Care Teams Insulation Nozzleman Relationship Specialty Start Date End Date None, Provider, PCP - General UNKNOWN PHYSICIAN SPECIALTY 05/24/22 documented as of this encounter
--- OUTSIDE RECORDS SUMMARY | 2024-08-17 12:26 | XMS_ITS | Encounter Summary ---
Author Organization [facility] Address [address] [place] [address] Care Team Providers Care Port Warden Name Role Phone Unknown, Notinfile Primary Care Provider Unavail able Encounter Details Date Type Department Care Team (Late st Contact Info) Description 03/19/2023 2:38 PM CDT - 03/19/2023 3:05 PM CDT Emergency [address] [address] Discharge Disposition: Left without being seen Social History Tobacco Use Types Packs/Day Years Used Date Smoking Tobacco: Never Assessed Personal Safety Answer Date Recorded Have you ever been in or are you currently in a harmful physical or emotional relationship or is someone making you feel afraid or unsafe? Denies 01/09/2023 Comments Unknown Sex and Gender Information Value Date Recorded Sex Assigned at Not on file Legal Sex Female 9:22 PM CDT Gender Identity Not on file Sexual Orientation Not on file documented as of this encounter Last Filed Vital Signs Vital Sign Reading Time Taken Comments Blood Pressure 133/73 03/19/2023 2:41 PM CDT Pulse 75 03/19/2023 2:41 PM CDT Temperature 36.2 ??C (97.1 ??F) 03/19/2023 2:41 PM CD T Respiratory Rate 18 03/19/2023 2:41 PM CDT Oxygen Saturation 100% 03/19/2023 2:41 PM CDT Inhaled Oxygen Concentration - - Weight 64.7 kg (142 lb 10.2 oz) 03/19/2023 2:41 PM CDT Height 167.6 cm (5' 6 ) 03/19/2023 2:41 PM CDT Body Mass Index 23.02 03/19/2023 2:41 PM CDT documented in this encounter Medications at Time of Discharge methylPREDNISolo ne (Medrol, Petr,) 4 mg Dosepack follow package directions 1 packet 01/10/2023 documented as of this encounter Discharge Disposition Disposition Code Departure Means Destination Left without being seen documented in this encounter Plan of Treatment Not on file documented as of this encounter Visit Diagnoses Not on filedocumented in this encounter Care Teams Port Warden Relationship Specialty Start Date End Date Unknown, Notinfile PCP - General 01/09/23 documented as of this encounter
--- OUTSIDE RECORDS SUMMARY | 2024-08-17 12:26 | XMS_ITS | Clinical Summary ---
Author Organization [facility] Address [address] [place] [address] Care Team Providers Care Edger Machine Setter Name Role Phone Unknown, Notinfile Primary Care Provider Unavail able Allergies No known active allergies Medications methylPREDNISol one (Medrol, Petr,) 4 mg Dosepack follow package directions 1 packet 3 Active Active Problems No known active problems Social History Tobacco Use Types Packs/Day Years Used Date Smoking Tobacco: Never Assessed Personal Safety Answer Date Recorded Getting School Help Needed Not on file 02/13 Comments Unknown Sex and Gender Information Value [...] Mass Index 23.02 03/19/2023 2:41 PM CDT Plan of Treatment Health Maintenance Due Date Last Done Comments Cervical Cancer Screening 2002 Depression Screening 2002 Hepatitis C Screening 2002 Meningococcal B Vaccine (2 o f 2 - Risk Bexsero 2-dose series) 07/26/2020 06/28/2020 Regular Well Visit/Exam 18-64 2020 Covid-19 Vaccine (3 - 2023-2 5 season) 2024 03/09/2021, 02/16/2021 Influenza Vaccine (#1) 2024 , 05/30/2018, 05/18/2016, Additional history exists DTaP/Tdap/Td Vaccine (7 - Td or Tdap) 05/13/2024 05/13/2014, 06/11/2007, 02/25/2004, Additional history exists Pneumococcal vaccine <65 Completed 006, 03/11/2003, 2002, Additional history exists Varicella Vaccines Completed 06/11/2007, 08/21/2003 HPV Vaccines Completed 10/15/2015, 12/2014, 05/13/2014 Meningococcal Vaccine Completed 06/16/2019, 014 Insurance Care Teams Edger Machine Setter Relationship Specialty Start Date End Date Unknown, Notinfile PCP - General 01/09/23
--- OUTSIDE RECORDS SUMMARY | 2024-08-17 12:26 | XMS_ITS | Encounter Summary ---
Author Organization [facility] Address [address] [place] [address]. [place], [place] [address] [place] [address] Care Team Providers Care Emblem Drawer In Name Role Phone None, Provider Primary Care [...] on filedocumented in this encounter Care Teams Emblem Drawer In Relationship Specialty Start Date End Date None, Provider, PCP - General UNKNOWN PHYSICIAN SPECIALTY 05/24/22 documented as of this encounter
--- OUTSIDE RECORDS SUMMARY | 2024-08-17 12:26 | XMS_ITS | Encounter Summary ---
Author Organization [facility] Address [address] [place] [address] Care Team Providers Care Hog Slaughterer Name Role Phone Unavailable Primary Care Provider Unavailabl e Encounter Details Date Type Department Care Team (Late st Contact Info) Description 11/18/2020 1:15 PM CDT Rapid Evaluation [facility] [place] [address] Social History Tobacco Use Types Packs/Day Years [...]
--- OUTSIDE RECORDS SUMMARY | 2024-08-17 12:26 | XMS_ITS | Referral Summary ---
Author Organization [facility] Address [address] [place] [address] Care Team Providers Care Client Evaluator Name Role Phone Unknown, Notinfile Primary Care [...] 03/19/2023 2:41 PM CDT Plan of Treatment Not on file Insurance [facility] Care Teams Client Evaluator Relationship Specialty Start Date End Date Unknown, Notinfile PCP - General 01/09/23
--- OUTSIDE RECORDS SUMMARY | 2024-08-17 12:26 | XMS_ITS | Encounter Summary ---
Author Organization [facility] Facility Care Team Providers Care Mononitrotoluene Operator Name Role Phone Unavailable Primary Care Provider Unavailabl e Encounter Details Date Type Department Care Team (Late st Contact Info) Description 12/25/2006 12:06 AM CDT - 12/25/2006 1:33 AM CDT Hospital Encounter [facility]CON[facility] Social History Tobacco Use Types Packs/Day Years [...]
--- OUTSIDE RECORDS SUMMARY | 2024-08-17 12:26 | XMS_ITS | Encounter Summary ---
Author Organization [facility] Healthcare Address [address] [place] [address] Care Team Providers Care Electrical Prospecting Observer Name Role Phone Unknown, Brunonfedmar Primary Care Provider Unavail able Encounter Details Date Type Department Care Team (Late st Contact Info) Description 03/20/[address] [address] Marifer Rollins, ROLAND Social History Tobacco Use Types Packs/Day Years [...] on file documented as of this encounter ED Notes * Marifer Rollins RN - 03/20/2023 9:50 AM CDT This RN attempted to call the pt as a LWBS follow up with no success. No VM was left due to no mailbox being offered. Marifer Rollins RN 03/20/23 0951 documented in this encounter Plan of Treatment Not on file documented as of this encounter Visit Diagnoses Not on filedocumented in this encounter Care Teams Electrical Prospecting Observer Relationship Specialty Start Date End Date Unknown, Estelle PCP - General 01/09/23 documented as of this encounter
--- OUTSIDE RECORDS SUMMARY | 2024-08-17 12:26 | XMS_ITS | Encounter Summary ---
Author Organization [facility] Address [address] [place] [address]. [place], [place] [address] [place] [address] Care Team Providers Care Realty Specialist Name Role Phone None, Provider MD Primary Care Provider Unavaila ble Reason for Visit * Reason Comments Insect Bite Encounter Details Date Type Department Care Team (Late st Contact Info) Description 03/19/2023 3:18 PM CDT - 03/19/2023 3:35 PM CDT Emergency [facility] [place] [address] Katheryn Geronimo, FIELD SERVICE SUPERVISOR- Insect Bite Discharge Disposition: Home or Self [...] of an allergic reaction. Your allergies can supervisor policy change clerks time, so even a medication or food [...] through Care Everywhere. * Hives Discharge Instructions (Luxembourger) documented in this encounter Medications at Time [...] Itching. 03/19/23 04/18/23 Yes Katheryn Borrero Juanpablo, FIELD SERVICE SUPERVISOR- History reviewed. No pertinent surgical history. No [...] 30 tablet, Refills: 0 Class: Eprescribe Pharmacy: [id number] [facility] [address] (Ph #: [phone]) Medical Decision Making Pt with inflammatory response [...] errors as this chart was documented using [employer], a dictation software. SHIRIN Bhardwaj 03/19/23 1519 [...] RN) documented in this encounter Care Teams Realty Specialist Relationship Specialty Start Date End Date None, Provider, PCP - General UNKNOWN PHYSICIAN SPECIALTY 05/24/22 documented as of this encounter
--- OUTSIDE RECORDS SUMMARY | 2024-08-17 12:26 | XMS_ITS | Encounter Summary ---
Author Organization [facility] Address [address] [place] [address] Care Team Providers Care Nurse Chemical Dependency Name Role Phone Unavailable Primary Care Provider Unavailabl e Encounter Details Date Type Department Care Team (Late st Contact Info) Description 11/18/2020 Lab Requisition [facility] [employer] Mobile Testing [place], [place] [address] Wilfredo Bianchi MD [address] [place] [address] [place] [address] Social History Tobacco Use Types [...]
--- OUTSIDE RECORDS SUMMARY | 2024-08-17 12:26 | XMS_ITS | Encounter Summary ---
Author Organization [facility] Facility Care Team Providers Care Bleach Packer Name Role Phone Unavailable Primary Care Provider Unavailabl e Encounter Details Date Type Department Care Team (Late st Contact Info) Description 05/30/2007 2:45 AM CDT - 05/30/2007 5:15 PM CDT Hospital Encounter [facility]INCON[facility] Social History [...]
--- OUTSIDE RECORDS SUMMARY | 2024-08-17 12:26 | XMS_ITS | Encounter Summary ---
Author Organization [facility] Healthcare Address [address] [place] [address] Care Team Providers Care Environmental Emergencies Assistant Name Role Phone Unknown, Notinfile Primary Care Provider Unavail able Reason for Visit * Reason Comments Insect Bite Encounter Details Date Type Department Care Team (Late st Contact Info) Description 01/09/2023 11:02 PM CDT - 01/10/2023 1:10 AM CDT Emergency [facility] [address] [place] [address] Insect bite of right upper arm, initial encounter (Primary Dx) Discharge Disposition: Discharge to home or self care Social History Tobacco Use Types Packs/Day Years [...] Sign Reading Time Taken Comments Blood Pressure 128/74 01/10/2023 1:05 AM CDT Pulse 68 01/10/2023 1:05 AM CDT Temperature 36.4 ??C (97.5 ??F) 01/09/2023 9:29 PM CD T Respiratory Rate 16 01/10/2023 1:05 AM CDT Oxygen Saturation 100% 01/10/2023 1:05 AM CDT Inhaled Oxygen Concentration - - Weight 63.5 kg (140 lb) 01/09/2023 9:29 PM CDT Height - - Body Mass Index - - documented in this encounter Discharge Instructions * Discharge Instructions* Marina Siddiqui PA - 01/10/2023 1:06 AM CDT 1) take steroid pack as prescribed. Take Benadryl for itching. May also use topical anti-itch cream 2) please follow-up with your primary care doctor this week for re-evaluation especially if not improving 3) return to the emergency room with any new or worsening symptoms including fever, increased redness swelling or warmth to the area, you develop difficulty breathing speaking or swallowing, lip or tongue swelling * Attachments The following attachments cannot be sent through Care Everywhere. * Insect Bite or Sting (AfterCare(R) Instructions(ER/ED)) (Australian) documented in this encounter Medications at Time of Discharge methylPREDNISolo ne (Medrol, Petr,) 4 mg Dosepack follow package directions 1 packet 01/10/2023 documented as of this encounter Ordered Prescriptions Prescription Sig Dispense Quantity Refills Last Filled Start Date End Date methylPREDNISolone (Medrol, Petr,) 4 mg Dosepack follow package directions 1 packet 01/10/2023 documented in this encounter Discharge Disposition Disposition Code Departure Means Destination Comment s Discharge to home or self care documented in this encounter ED Notes * Marina Siddiqui PA - 01/10/2023 12:41 AM CDT ED NOTE Chief Complaint Chief Complaint Patient presents with Insect Bite History of Present Illness The patient is a 22 y.o. female who presents for evaluation of bites to her right arm chest and back that she noticed when she woke up from her sleep this evening. Notes she did not have any bumps when she got in bed. She did not see a bug. Reports she has bad reactions to mosquito bites. Denies any tongue or lip swelling, difficulty breathing speaking or swallowing. Denies any changes to detergents, hygiene products, foods. Medical History ALLERGIES: No Known Allergies MEDICATIONS: Prior to Admission medications Not on File PAST MEDICAL HISTORY: No past medical history on file. PAST SURGICAL HISTORY: No past surgical history on file. FAMILY HISTORY: No family history on file. SOCIAL HISTORY: Social History Tobacco Use Smoking status: Not on file Smokeless tobacco: Not on file Substance and Sexual Activity Drug use: Not on file Sexual activity: Not on file Alcohol Use: Not on file Review of Systems All systems reviewed and are neg or non contributory for this patients presentation today other than as stated in the HPI . Physical Exam BP 128/74 Pulse 68 Temp 36.4 ??C (97.5 ??F) (Oral) Resp 16 Wt 63.5 kg (140 lb) SpO2 100% Physical Exam Vitals and nursing note reviewed. Constitutional: Appearance: Normal appearance. HENT: Mouth/Throat: Pharynx: Oropharynx is clear. Comments: No tongue or lip swelling. Speaking in full clear sentences. Eyes: Conjunctiva/sclera: Conjunctivae normal. Cardiovascular: Rate and Rhythm: Normal rate and regular rhythm. Pulses: Normal pulses. Heart sounds: Normal heart sounds. Pulmonary: Effort: Pulmonary effort is normal. Breath sounds: Normal breath sounds. Abdominal: Palpations: Abdomen is soft. Musculoskeletal: General: Normal range of motion. Cervical back: Normal range of motion and neck supple. Skin: General: Skin is warm. Capillary Refill: Capillary refill takes less than 2 seconds. Comments: Several pruritic small bumps with surrounding erythema to the right upper arm, chest, back. One of the bumps on the arm has a large area of surrounding erythema. There is no warmth or significant swelling. Neurological: General: No focal deficit present. Mental Status: She is alert. Psychiatric: Mood and Affect: Mood normal. Diagnostic Studies / Procedures LABORATORY STUDIES: Labs Reviewed - No data to display IMAGING STUDIES: No orders to display No results found. Procedures ED Course / Medical Decision Making MDM Number of Diagnoses or Management Options Insect bite of right upper arm, initial encounter Diagnosis management comments: DDX includes: Bug bite, secondary cellulitis, allergic reaction Nontoxic-appearing patient presents for periodic bug bites, although she did not see any bugs. Examfindings are consistent with bug bites. No evidence of secondary cellulitis at this time. Given steroid and Benadryl in ED. No evidence of anaphylaxis. Plan for discharge with conservative treatment and follow up with primary care doctor. Strict verbal return precautions reviewed. Patient expresses verbal understanding and agreement with plan. All questions answered to the best of my ability. Nontoxic exit exam. Patient discharged home in stable condition. Medications diphenhydrAMINE (BENADRYL) tab/cap 25 mg (25 mg oral Given 01/10/23 004) dexAMETHasone (DECADRON) preservative free solution 10 mg (10 mg intramuscular Given 01/10/2344) Diagnoses that have been ruled out: None Diagnoses that are still under consideration: None Final diagnoses: Insect bite of right upper arm, initial encounter Disposition: DISPOSITION: Home Follow-Up: No follow-up provider specified. CROW Quick 01/10/2023 Marina Siddiqui PA 01/10/23 0113 Cosigned by Jase Sun MD at 01/10/2023 4:45 AM CDT Associated attestation - Jase Sun MD - 01/10/2023 4:45 AM CDT ED Attestation I did not see this patient. However, I was personally available for consultation in the ED for thispatient if the Advanced Practice Provider (NED) needed any assistance. The NED evaluated the patient independently and completed their own examination, documentation, and disposition. 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 Patient states she woke up today with bites to the right arm and her back and chest - did not take anything for it. documented in this encounter Plan of Treatment Not on file documented as of this encounter Visit Diagnoses Diagnosis Insect bite of right upper arm, initial encounter- Primary documented in this encounter Administered Medications Inactive Administered Medications - up to 3 most recent administrations Medication Order MAR Action Action Date Dose Rate Site dexAMETHasone (DECADRON) preservative free solution 10 mg 10 mg, intramuscular, Once, On Sun01/10/23 at 0042, For 1 dose Given 01/10/2023 12:45 AM CDT 10 mg Left Deltoid diphenhydrAMINE (BENADRYL) tab/cap 25 mg 25 mg, oral, Once, On Sun01/10/23 at 0042, For 1 dose Given 01/10/2023 12:45 AM CDT 25 mg documented in this encounter Active and Recently Administered Medications Times are shown in CDT. Scheduled Medication Order 01/08/2023 01/09/2023 01/10/2023 dexAMETHasone (DECADRON) preservative free solution 10 mg (COMPLETED) 10 mg, intramuscular, Once, On Sun01/10/23 at 0042, For 1 dose 0045 (Given - Provid er: Aida Callahan RN) diphenhydrAMINE (BENADRYL) tab/cap 25 mg (COMPLETED) 25 mg, oral, Once, On Sun01/10/23 at 0042, For 1 dose 0045 (Given - Provid er: Aida Callahan RN) documented in this encounter Care Teams Environmental Emergencies Assistant Relationship Specialty Start Date End Date Unknown, Notinfile PCP - General 01/09/23 documented as of this encounter
--- OUTSIDE RECORDS SUMMARY | 2024-08-17 12:26 | XMS_ITS | Encounter Summary ---
Author Organization [facility] Address [address] [place] [address]. [place], [place] [id number] [place] [id number] Care Team Providers Care Splunk Dashboard Developer Name Role Phone None, Provider MD Primary Care Provider Unavaila ble Reason for Visit * Reason Comments Physical basketball Encounter Details Date Type Department Care Team (Late st Contact Info) Description 05/24/2022 11:30 AM CDT Office Visit [facility] Medical [place] [phone] Rafaela Francisco, ANP-BC Physical (basketball) Social History [...] Date = 05/24/2022. School or organization = [employer]. Sports = basketball History of concussion no. [...] P.E. Under media Impression/Plan: 1. Sports physical [id number] Clearance: A. Cleared? yes Physical form given. KRISTIN PRINCE Cosigned by Chadwick Bueno MD at 05/25/2022 7:49 AM CDT documented in this encounter Plan of Treatment Not on file documented as of this encounter Visit Diagnoses Diagnosis Sports physical- Primary Other general medical examination for administrative purposes documented in this encounter Care Teams Splunk Dashboard Developer Relationship Specialty Start Date End Date None, Provider, MD PCP - General UNKNOWN PHYSICIAN SPECIALTY 05/24/22 documented as of this encounter
--- OUTSIDE RECORDS SUMMARY | 2024-08-17 12:26 | XMS_ITS | Clinical Summary ---
Author Organization [facility] Address [address] [place] [address]. [place], [place] [id number] [place] [address] Care Team Providers Care Lawn Care Specialist Name Role Phone None, Provider MD [...] age to complete this topic Care Teams Lawn Care Specialist Relationship Specialty Start Date End Date None, Provider, MD PCP - General UNKNOWN PHYSICIAN SPECIALTY 05/24/22
== END 2024-08-10 12:40 | disposition home or self-care (01) ==
LOC: ANHED 12:09
PROVIDERS: Emergency Provider Emergency Medicine
DX: F40.241 Acrophobia (principal)
CPT/HCPCS: 99281

== ENCOUNTER 2025-02-18 08:54 | Emergency (ER) | payer OTHER, SELFPAY ==
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
--- OUTSIDE RECORDS SUMMARY | 2025-02-18 09:00 | XMS_ITS | Clinical Summary ---
Author Organization [facility] Address [address] [place] [address] Care Team Providers Care Intake Worker Name Role Phone None, Provider MD Primary [...] 75 03/19/2023 3:13 PM CDT Temperature 36.8 C (98.3 F) 03/19/2023 3:13 PM CDT Respiratory Rate 18 03/19/2023 3:13 PM CDT Oxygen Saturation 100% 03/19/2023 3:13 PM CDT Inhaled Oxygen Concentration - - Weight 64.9 kg (143 lb 1.3 oz) 03/19/2023 3:13 P M CDT Height 166.4 cm (5' 5.5) 03/19/2023 3:13 PM CDT Body Mass Index 23.45 03/19/2023 3:13 PM CDT Plan of Treatment Health Maintenance Due Date Last Done Comments Cervical Cancer Screening Pap Smear (Age 21 to 29) Every 3 Years 2002 Cervical Cancer Screening 2002 Annual Physical 2005 Hepatitis C 2020 Meningococcal B Vaccine (2 of 2 - Bexsero SCDM 2-dose series) 12/26/2020 06/28/2020 COVID-19 Vaccine ( season) 2024 03/09/2021, 02/16/2021 DTaP, Tdap and Td Vaccines (7 - Td or Tdap) 05/13/2024 05/13/2014, 06/11/2007, 02/25/2004, Additional history exists Hepatitis B Vaccines Completed 06/22/2003, 2002, 2002 Pneumococcal Vaccine: Pediatrics (0 to 5 Years) and At-Risk Patients (6 to 49 Years) Aged Out 04/09/2006, 03/11/2003, 2002, Additional history exists No longer eligible based on patient's age to complete this topic HPV Vaccines Completed 10/15/2015, 12/2014, 05/13/2014 Meningococcal Vaccine Completed 06/16/2019, 014 RSV Immunizations Under 20 Months Aged Out No longer eligible based on patient's age to complete this topic Care Teams Intake Worker Relationship Specialty Start Date End Date None, Provider, MD PCP - General UNKNOWN PHYSICIAN SPECIALTY 05/24/22
--- OUTSIDE RECORDS SUMMARY | 2025-02-18 09:00 | XMS_ITS | Referral Summary ---
Author Organization [facility] Address [address] [place] [address] Care Team Providers Care Story Writer Name Role Phone Unknown, Notinfile Primary Care [...] 75 03/19/2023 2:41 PM CDT Temperature 36.2 C (97.1 F) 03/19/2023 2:41 PM CDT Respiratory Rate 18 03/19/2023 2:41 PM CDT Oxygen Saturation 100% 03/19/2023 2:41 PM CDT Inhaled Oxygen Concentration - - Weight 64.7 kg (142 lb 10.2 oz) 03/19/2023 2:41 PM CDT Height 167.6 cm (5' 6) 03/19/2023 2:41 PM CDT Body Mass Index 23.02 03/19/2023 2:41 PM CDT Plan of Treatment Not on file Insurance [facility] Care Teams Story Writer Relationship Specialty Start Date End Date Unknown, Notinfile PCP - General 01/09/23
--- OUTSIDE RECORDS SUMMARY | 2025-02-18 09:00 | XMS_ITS | Clinical Summary ---
Author Organization [facility] Address [address] [place] [address] Care Team Providers Care Seo Specialist Name Role Phone Unknown, Notinfile Primary Care [...] Depression Screening 2002 Hepatitis C Screening 2002 Regular Well Visit/Exam 18-64 2020 Meningococcal B Vaccine (2 o f 2 - Bexsero SCDM 2-dose series) 12/26/2020 06/28/2020 Covid-19 Vaccine (3 - 2023-2 5 season) 2024 03/09/2021, 02/16/2021 DTaP/Tdap/Td Vaccine (7 - Td or Tdap) 05/13/2024 05/13/2014, 06/11/2007, 02/25/2004, Additional history exists Influenza Vaccine (Season Ended) 2025 06/26/2020, 05/30/2018, 05/18/2016, Additional history exists Hepatitis B Screening Completed 06/22/2003 , 2002, 2002 Pneumococcal vaccine <65 Completed 006, 03/11/2003, 2002, Additional history exists Varicella Vaccines Completed 06/11/2007, 08/21/2003 HPV Vaccines Completed 10/15/2015, 12/2014, 05/13/2014 Insurance Care Teams Seo Specialist Relationship Specialty Start Date End Date Unknown, Notinfile PCP - General 01/09/23
--- OUTSIDE RECORDS SUMMARY | 2025-02-18 09:00 | XMS_ITS | Clinical Summary ---
Author Organization [facility] Care Team Providers Care University Teacher Name Role Phone Unavailable Primary Care Provider [...] Comments Hepatitis C Virus (HCV) Screening 2002 Meningococcal B Immunization (2 of 2 - Bexsero SCDM 2-dose series) 12/26/2020 06/28/2020 Pap Smear 2023 Influenza Immunization (#1) 04/13/202406/13, 05/30/2018, 05/18/2016, Additional history exists SARS-COV-2 Immunization ( season) 2024 03/09/2021, 02/16/2021 Respiratory Syncytial Virus (RSV) Immunization (Adult) (1 - 1-dose 75+ series) 2077 Hepatitis B Immunization Completed 003, 2002, 2002 [...]
[2025-02-18 09:04] VITALS: BP 123/85; PULSE 68; RESP 16; TEMP 36.6; O2SAT 100
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
== END 2025-02-18 10:05 | disposition home or self-care (01) ==
PROVIDERS: Emergency Provider Nurse Practitioner Family
DX: S29.012A Strain of muscle and tendon of back wall of thorax, initial encounter (principal); S39.012A Strain of muscle, fascia and tendon of lower back, initial encounter; V89.2XXA Person injured in unspecified motor-vehicle accident, traffic, initial encounter
CPT/HCPCS: 72072; 72110; 99213; G0463

== ENCOUNTER 2025-02-26 12:23 | Emergency (ER) | payer SELFPAY ==
[2025-02-26 12:28] VITALS: BP 129/68; PULSE 76; RESP 16; TEMP 36.7; O2SAT 100
--- NOTE | 2025-02-26 12:41 | ED.FEMALEGU ---
HPI - Female Genitourinary General Chief complaint: Urogenital-Female Stated complaint: Sharp pains in pelvic during menstrual cycle Time Seen by Provider: 02/26/25 12:25 Source: patient Mode of arrival: ambulatory Limitations: no limitations History of Present Illness HPI Narrative: Patient is a 24-year-old female who presents with menstrual cramping. States your cycle started yesterday and the cramping started wound 11:00 p.m.. Patient states she does not normally have this severe of menstrual cramping. Denies cycle being more heavy than normal. Patient denies any new sexual partners, discharge prior to menstrual cycle starting or concern for STI. Related Data Allergies Allergy/AdvReac Type Severity Reaction Status Date / Time No Known Allergies Allergy Verified 02/26/25 12:28 Review of Systems Review of Systems: All systems reviewed & are unremarkable except as noted in HPI and below Constitutional: Constitutional: Denies body ache(s), Denies chills, Denies fatigue, Denies fever(s), Denies headache(s), Denies malaise and Denies weakness Eyes: Eyes: Denies blurry vision, Denies irritation and Denies loss of vision ENT: Denies otalgia, Denies headache(s), Denies nasal discharge, Denies sinus pain and Denies sore throat Cardiovascular: Cardiovascular: Denies chest pain, Denies irregular heart rhythm and Denies dyspnea Respiratory: Respiratory: Denies dyspnea Gastrointestinal: Gastrointestinal: Denies abdominal pain, Denies melena, Denies hematochezia, Denies diarrhea, Denies nausea and Denies vomiting Genitourinary: Genitourinary: Reports dysmenorrhea, Denies dysuria, Reports pelvic pain, Denies flank pain, Denies vaginal discharge and Denies vaginal odor Musculoskeletal: Musculoskeletal: Denies back pain, Denies myalgias and Denies arthralgias Integumentary/Breasts: Skin/Breast: Denies pruritus and Denies rash Neurologic: Denies headache(s), Denies loss of vision and Denies weakness Psychiatric: Psychiatric: Reports no additional psychiatric complaints Endocrine: Endocrine: Denies fatigue PMFSH Past Medical History Medical History No active medical problems Social History Social History (Reviewed 02/26/25 @ 13:11 by JULIO Soto Smoking status: Never smoker Comments At time of signature, agree with nursing past medical, surgical, social and family history. There is no relevant family history pertinent to the presenting complaint. Exam Const: General: cooperative, healthy appearing, comfortable, no acute distress and well nourished Nutritional Appearance: well nourished Orientation/consciousness: patient oriented x3 Limitations: no limitations HENMT: Head: normal to inspection, normocephalic and atraumatic Ears: hearing grossly normal bilaterally and external ears normal Face/Nose/Sinus: Normal external nose present, normal facial exam and face symmetric Face and sinus: normal facial exam and face symmetric Mouth: Yes lip normal Eyes: General: appearance normal, both eyes and all related structures Alignment and Position: alignment normal and position normal Periorbital: periorbital findings normal Eyelids: eyelids normal Pupils: Equal, round and reactive pupils present EOM: EOMs intact bilaterally Neck: Neck: normal visual inspection, full ROM and supple Chest: Chest palpation & inspection: normal inspection of the chest Resp: Effort & Inspection: normal respiratory effort and able to speak in complete sentences Auscultation: clear to auscultation bilaterally Cardio: Rate: regular rate Rhythm: regular rhythm Heart sounds: S1 normal heart sound present and S2 normal heart sound present GI: Inspection: normal to inspection GI Palp: Yes abdominal tenderness (Suprapubic) Auscultation: normal bowel sounds Rectal Exam: deferred : General: Yes no CVA tenderness Skin: General skin exam: normal color and no rashes or lesions noted Neuro: General: patient oriented x3 and moves all extremities Cranial nerves: Yes Equal, round and reactive pupils present Speech: normal speech Gait exam (Neuro): Normal gait present Extrem: General: normal to inspection, full ROM and no edema Psych: Appearance: grossly normal and well kempt Mental Status: mental status grossly normal Speech and movement: Normal speech and movement present Affect: normal affect Attitude: cooperative Thought process: Normal thought process present Course Course Emergency Course: Patient is aware of diagnosis, understands and agrees to treatment plan. Anticipatory guidance given. Patient agrees to follow-up as directed and is aware of reasons to seek care at the emergency department. Portions of this record may have been created with voice recognition software Level of Care: Express Care Visit Vital Signs Vital signs: Vital Signs Temperature 36.7 C 02/26/25 12:28 Pulse Rate 76 02/26/25 12:28 Respiratory Rate 16 02/26/25 12:28 Blood Pressure 129/68 02/26/25 12:28 Pulse Oximetry 100 02/26/25 12:28 Oxygen Delivery Room Air 02/26/25 12:28 Temperature 36.7 C 02/26/25 12:28 Pulse Rate 76 02/26/25 12:28 Respiratory Rate 16 02/26/25 12:28 Blood Pressure 129/68 02/26/25 12:28 Pulse Oximetry 100 02/26/25 12:28 Oxygen Delivery Room Air 02/26/25 12:28 Reviewed MDM - Female Genitourinary MDM Narrative Medical decision making narrative: Patient given 30 mg Toradol injection for cramping. Patient states her pain went from a 6 to a 2. Patient states the cramps her still there but not as intense. Discussed transfer to emergency department for further workup and imaging. Patient declined at this time but does state if symptoms worsen she will go to the emergency department. Pt well hydrated appearing, in no respiratory distress, hemodynamically stable. Recommend supportive care. The patient is stable at time of discharge the clinical impression was discussed and the patient was given the opportunity to ask questions, which were addressed as completely as possible given the information available at present. Anticipatory guidance and return to care precautions were discussed and the importance of primary care follow-up was stressed and encouraged. The patient voiced understanding of the plan, indications to return, and the need for follow-up. Exam findings show no acute concerns or changes Patient is appropriate for outpatient treatment and follow-up. Differential Diagnosis Differential diagnosis: Likely urinary tract infection, ovarian cyst, ruptured ovarian cyst, dysmenorrhea and other (Less likely ovarian torsion, appendicitis or diverticulitis) Medical Records Attestation: I reviewed the patient's medical records. Discharge Plan Discharge Clinical Impression: Menstrual cramps Patient Disposition: Home Condition: Stable Instructions: Dysmenorrhea (ED) Additional Instructions: For pain, you may take: Tylenol 650-1000mg by mouth every 4-6 hours. Do not exceed 4000mg in 24 hours. Advil (Ibuprofen) 600 mg by mouth every 6 hours. Do not exceed 2400mg in 24 hours. 8 AM: Tylenol 11 AM: Ibuprofen 2 PM: Tylenol 5 PM: Ibuprofen 8 PM: Tylenol 11 PM: Ibuprofen 2 AM: Tylenol 5 AM: Ibuprofen Give any worsening cramping, severe vaginal bleeding or other concerns please go to the emergency department Patient Language: Thai Prescriptions: New ibuprofen 600 mg tablet 600 mg PO QID PRN (Reason: pain) Qty: 60 0RF No Action cyclobenzaprine 10 mg tablet 10 mg PO Q8H PRN (Reason: muscle spasm) 7 Days Qty: 21 0RF naproxen 500 mg tablet 500 mg PO BID PRN (Reason: pain) 7 Days Qty: 14 0RF Follow-up/Referrals: Fer Pratt MD [Physician] - 3 Days Stand Alone Forms: Work/School Release IP Time of Disposition: 13:47
[2025-02-26] MEDS: KETOROLAC 30 MG/ML VIAL (*BKC) IM (13:08)
== END 2025-02-26 13:51 | disposition home or self-care (01) ==
PROVIDERS: Emergency Provider Nurse Practitioner Family
DX: N94.6 Dysmenorrhea, unspecified (principal)
CPT/HCPCS: 96372; 99213; G0463; J1885

== ENCOUNTER 2025-03-28 21:39 | Emergency (ER) | payer BC, SELFPAY ==
--- NOTE | ~2025-03-28 | XR_ITS ---
Right Knee Technique: AP, lateral, and oblique views were obtained. Clinical History: Pain Findings: No fracture or dislocation is seen. Osseous alignment is anatomic. Joint spaces are preserv ed without degenerative or erosive change. Soft tissues are unremarkable. No joint effusion is seen. Impression: Unremarkable right knee radiographs. Reviewed, dictated and finalized at location . Impression: Unremarkable right knee radiographs.
--- OUTSIDE RECORDS SUMMARY | 2025-03-28 21:41 | XMS_ITS | Clinical Summary ---
Author Organization [facility] Address [address] [place] [address] Care Team Providers Care Pathology Specialist Name Role Phone Unknown, Notinfile Primary [...] 06/11/2007, 02/25/2004, Additional history exists Influenza Vaccine (#1) 2025 , 05/30/2018, 05/18/2016, Additional history exists Hepatitis B Screening Completed 06/22/2003 , 2002, 2002 Pneumococcal vaccine <65 Completed 006, 03/11/2003, 2002, Additional history exists Varicella Vaccines Completed 06/11/2007, 08/21/2003 HPV Vaccines Completed 10/15/2015, 12/2014, 05/13/2014 Insurance Care Teams Pathology Specialist Relationship Specialty Start Date End Date Unknown, Notinfile PCP - General 01/09/23
--- OUTSIDE RECORDS SUMMARY | 2025-03-28 21:41 | XMS_ITS | Clinical Summary ---
Author Organization [facility] Address [address] [place] [id number] Care Team Providers Care Pnp Name Role Phone None, Provider MD Primary [...] age to complete this topic Care Teams Pnp Relationship Specialty Start Date End Date None, Provider, MD PCP - General UNKNOWN PHYSICIAN SPECIALTY 05/24/22
--- OUTSIDE RECORDS SUMMARY | 2025-03-28 21:41 | XMS_ITS | Clinical Summary ---
Author Organization [facility] Care Team Providers Care Tractor Operator Battery Name Role Phone Unavailable Primary Care Provider [...] - Bexsero SCDM 2-dose series) 12/26/2020 06/28/2020 SARS-COV-2 Immunization ( season) 2024 03/09/2021, 02/16/2021 Influenza Immunization (#1) 04/13/202506/13, 05/30/2018, 05/18/2016, Additional history exists Respiratory Syncytial Virus (RSV) Immunization (Adult) (1 [...]
[2025-03-28 21:53] VITALS: BP 147/71; PULSE 69; RESP 20; TEMP 37.1; O2SAT 100
--- NOTE | 2025-03-29 00:10 | ED_ITS ---
HPI - Extremity Injury (Lower) General Chief Complaint: Extremity Injury, Lower Stated Complaint: R knee pain Time Seen by Provider: 03/28/25 23:57 History of Present Illness HPI Narrative: 24-year-old otherwise healthy female presenting to the emergency department with right knee pain. She states she was at a trampoline park and she came down from a lay up from basketball and fell on her right knee and felt like her patella dislocated medially before spontaneously reducing back. She states she was having difficulty bearing weight immediately afterwards but no significant swelling. No numbness or tingling. No weakness in the limb. No head trauma loss consciousness. She showed me a video of the accident and appears to have the injury as described above. Was otherwise in her normal state of health, pain is bearable unless she tries to walk or put weight on it. Related Data Allergies Allergy/AdvReac Type Severity Reaction Status Date / Time No Known Allergies Allergy Verified 03/28/25 21:57 Review of Systems Review of Systems: As reviewed [facility] Past Medical History Medical History No active medical problems Social History Social History Smoking status: Never smoker Exam Narrative: GENERAL: [Well-appearing, well-nourished, and in no acute distress.] HEAD: [Normocephalic, atraumatic.] EYES: [PERRLA and EOMI.] ENT: Nares clear, no rhinorrhea or epistaxis. Mucous membranes moist. NECK: Supple. CHEST: [Clear to auscultation. No respiratory distress.] HEART: [Regular rate and rhythm]. No murmur heard. [Normal peripheral pulses.] ABDOMEN: [Soft, nondistended], [nontender], [No rigidity or guarding] EXTREMITIES: Tenderness to palpation over the medial patella on the right knee, no instability with valgus or varus stress testing of the knee, negative Ulna's test. Intact extensor mechanism of the knee, intact quadriceps and patellar tendon. No significant joint swelling or knee effusion. Intact plantar and dorsiflexion at the ankle. Full strength 5/5 at the ankle and knee. Pain reproducible palpation and movement. SKIN: Warm, dry, no rash. NEURO: [No focal deficits]. Alert and oriented [x3.] PSYCH: [Normal mood and affect.] Course Vital Signs Vital signs: Vital Signs Temperature 37.1 C 03/28/25 21:53 Pulse Rate 69 03/28/25 21:53 Respiratory Rate 20 03/28/25 21:53 Blood Pressure 147/71 H 03/28/25 21:53 Pulse Oximetry 100 03/28/25 21:53 Oxygen Delivery Room Air 03/28/25 21:53 Temperature 36.8 C 03/29/25 00:54 Pulse Rate 76 03/29/25 00:54 Respiratory Rate 16 03/29/25 00:54 Blood Pressure 107/67 03/29/25 00:54 Pulse Oximetry 98 03/29/25 00:54 Oxygen Delivery Room Air 03/28/25 21:53 MDM - Extremity Injury (Lower) MDM Narrative Medical decision making narrative: 24-year-old otherwise healthy female presenting to the emergency department with right knee pain. She states she was [place] [employer] [place] and she came down from a lay up from basketball and fell on her right knee and felt like her patella dislocated medially before spontaneously reducing back. She states she was having difficulty bearing weight immediately afterwards but no significant swelling. No numbness or tingling. No weakness in the limb. No head trauma loss consciousness. She showed me a video of the accident and appears to have the injury as described above. Was otherwise in her normal state of health, pain is bearable unless she tries to walk or put weight on it. Tenderness to palpation over the medial patella on the right knee, no instability with valgus or varus stress testing of the knee, negative Luna's test. Intact extensor mechanism of the knee, intact quadriceps and patellar tendon. No significant joint swelling or knee effusion. Intact plantar and dorsiflexion at the ankle. Full strength 5/5 at the ankle and knee. Pain reproducible palpation and movement. Symptoms consistent with a closed patellar dislocations spontaneously reduced, other potential etiologies including internal derangement the right knee, ligamentous injury, less likely tear or fracture. X-rays were obtained which shows no acute osseous abnormalities and no joint effusion. Patient was given low-dose oxycodone and Tylenol for analgesia and a knee immobilizer was placed for comfort. She was provided crutches for ambulation assistance as well as prescription medications for anti- inflammatories and return precautions and follow-up instructions with Orthopedic s. Patient comfortable with plan and safe for discharge at this time. Medical Records Attestation: I reviewed the patient's medical records. Lab Data Attestation: I reviewed the patient's lab results. Imaging Data Attestation: I personally reviewed and interpreted this imaging study as follows: My impression: No acute osseous abnormalities, no joint effusion Discharge Plan Discharge Clinical Impression: Closed dislocation of right patella, Acute knee pain Patient Disposition: Home Condition: Stable Instructions: Antibiotic Form, Knee Pain (ED), Patellar Dislocation (ED), Knee Immobilizer (ED) Additional Instructions: Symptoms consistent with a closed dislocation of the right patella which has spontaneously reduced. No findings such as a fracture or any joint effusions. Wear the knee immobilizer for comfort and stability of the knee joint. Ambulate as tolerated and use crutches if not able to ambulate. Prescriptions for anti- inflammatory control sent to her pharmacy for around the clock pain and swelling control. Follow-up with orthopedics. Call the clinic on Sunday for closest appointment. Return with any emergent concerns. Patient Language: Greek Prescriptions: New acetaminophen [Tylenol Extra Strength] 500 mg tablet 1,000 mg PO TID PRN (Reason: pain) Qty: 30 0RF ibuprofen 600 mg tablet 600 mg PO TID PRN (Reason: pain) Qty: 20 0RF No Action cyclobenzaprine 10 mg tablet 10 mg PO Q8H PRN (Reason: muscle spasm) 7 Days Qty: 21 0RF naproxen 500 mg tablet 500 mg PO BID PRN (Reason: pain) 7 Days Qty: 14 0RF ibuprofen 600 mg tablet 600 mg PO QID PRN (Reason: pain) Qty: 60 0RF Follow-up/Referrals: Kenney Wilson MD [Physician] - 3 Days (Patellar dislocation, knee pain) PHYSICIAN,[employer] WE[employer] DEVELOPER [Primary Care Provider] - Stand Alone Forms: Work/School Release IP Time of Disposition: 00:07
[2025-03-29] MEDS: ACETAMINOPHEN 500 MG TABLET 1000 MG PO (00:20)
[2025-03-29] MEDS: oxyCODONE HCL (*CRX) 5 MG TAB IR PO (00:20)
--- OUTSIDE RECORDS SUMMARY | 2025-03-29 00:42 | XMS_ITS | Clinical Summary ---
Author Organization [facility] Address [address] [place] [address] Care Team Providers Care Software Database Architect Name Role Phone None, Provider MD Primary [...] age to complete this topic Care Teams Software Database Architect Relationship Specialty Start Date End Date None, Provider, MD PCP - General UNKNOWN PHYSICIAN SPECIALTY 05/24/22
--- OUTSIDE RECORDS SUMMARY | 2025-03-29 00:42 | XMS_ITS | Clinical Summary ---
Author Organization [facility] Care Team Providers Care Sedimentationist Name Role Phone Unavailable Primary Care Provider [...]
--- OUTSIDE RECORDS SUMMARY | 2025-03-29 00:42 | XMS_ITS | Clinical Summary ---
Author Organization [facility] Address [address] [place] [address] Care Team Providers Care Jig Box Operator Name Role Phone Unknown, Notinfile Primary Care [...] Completed 10/15/2015, 12/2014, 05/13/2014 Insurance Care Teams Jig Box Operator Relationship Specialty Start Date End Date Unknown, Notinfile PCP - General 01/09/23
[2025-03-29 00:54] VITALS: BP 107/67; PULSE 76; RESP 16; TEMP 36.8; O2SAT 98
== END 2025-03-29 00:55 | disposition home or self-care (01) ==
LOC: ANHED 03-29 00:41
PROVIDERS: Emergency Provider Student in an Organized Health Care Education/Training Program
DX: S83.004A Unspecified dislocation of right patella, initial encounter (principal); W18.39XA Other fall on same level, initial encounter; Y93.44 Activity, trampolining
CPT/HCPCS: 73562; 99283; A9270

== ENCOUNTER 2025-04-20 13:05 | Outpatient (CLI) | payer BC, SELFPAY ==
--- NOTE | ~2025-04-20 | MR_ITS ---
EXAMINATION: MR knee RT wo con DATE: 04/20/2025 13:35 INDICATION: Sprain of the medial collateral ligament and the right knee TECHNIQUE: Magnetic resonance imaging (MRI) of the right knee was performed without intravenous contrast. Sequences included coronal PD-weighted FSE, coronal PD-weighted FS FSE, sagittal T2-weighted FSE, sagittal PD-weighted FS FSE and axial PD weighted fat saturated FSE. COMPARISON: None. FINDINGS: Medial compartment: Medial meniscus is normal. Articular cartilage is normal. Lateral compartment: Lateral meniscus is normal. Articular cartilage is normal. Patellofemoral compartment: Articular cartilage is normal. Ligaments and tendons: Posterior cruciate ligament is normal. There is complete tear of the proximal aspect of the anterior cruciate ligament. Likely mild partial tear along the anterior margin of the proximal medial collateral ligament. The fibular collateral ligament complex is normal. The extensor mechanism is normal. The visualized medial and lateral hamstring tendons as well as the iliotibial band are normal. Fluid: Small right knee joint effusion. No loose osteochondral bodies identified. Osseous/other: There is prominent marrow edema surrounding a small curvilinear subarticular low signal intensity impaction fracture line underlying the lateral sulcus of the lateral femoral condyle. There is marrow edema along the posterior margins of the medial and lateral tibial plateaus as well as along the medial margin anterior weightbearing medial femoral condyle without discrete fracture lines consistent with bone contusions. Consultations of findings would be consistent with an anterior tibial subluxation injury occurring in conjunction with the anterior cruciate ligament tear. No pathologic marrow replacing process. IMPRESSION: 1. Complete tear of the anterior cruciate ligament and mild partial tear along the anterior margin of the proximal medial collateral ligament. 2. Subarticular impaction fracture at the lateral sulcus of the lateral femoral condyle and bone contusions along the anterior weightbearing medial femoral condyle and the posterior margin of the medial and lateral tibial plateaus consistent with an anterior tibial subluxation injury occurring contempo raneously with the anterior cruciate ligament tear. Reviewed, dictated and finalized at location A. IMPRESSION: 1. Complete tear of the anterior cruciate ligament and mild partial tear along the anterior margin of the proximal medial collateral ligament. 2. Subarticular impaction fracture at the lateral sulcus of the lateral femoral condyle and bone contusions along the anterior weightbearing medial femoral co ndyle and the posterior margin of the medial and lateral tibial plateaus consis tent with an anterior tibial subluxation injury occurring contemporaneously wit h the anterior cruciate ligament tear.
== END 2025-04-20 13:06 | disposition home or self-care (01) ==
LOC: MICIMG 13:06
PROVIDERS: PCP Orthopaedic Surgery; Visit Provider Orthopaedic Surgery
DX: S83.511A Sprain of anterior cruciate ligament of right knee, initial encounter (principal); X58.XXXA Exposure to other specified factors, initial encounter
CPT/HCPCS: 73721